=== PATIENT | female | born 1975 | race Caucasian/White ===

== ENCOUNTER 2020-01-19 22:10 | Emergency (ER) | payer MEDICAID ==
[~2020-01-19] VITALS: Ht 162.6 cm; Wt 106.8 kg
[~2020-01-19 22:10] MED LIST: ALBU6.7H3 IH; BUDE10.2 INH
[2020-01-19] MEDS ORDERED: BACDS PO (22:48)
[2020-01-19 23:19] VITALS: BP 136/78
== END 2020-01-19 23:24 | disposition home or self-care (01) ==
LOC: ER 22:10
DX: K13.0 Diseases of lips (principal); J45.909 Unspecified asthma, uncomplicated; F12.90 Cannabis use, unspecified, uncomplicated; Z72.89 Other problems related to lifestyle; Z88.6 Allergy status to analgesic agent; Z79.899 Other long term (current) drug therapy
CPT/HCPCS: 99283

== ENCOUNTER 2020-04-07 18:05 | Emergency (ER) | payer MEDICAID ==
[~2020-04-07] VITALS: Ht 162.6 cm; Wt 102.8 kg
--- NOTE | 2020-04-07 18:59 | NUR ---
U/S IN BED 15 AND WAS NOTIFIED OF U/S TO BE DONE IN ROOM 9 AFTER
[2020-04-07 19:44] LABS: EOSINOPHILS # (AUTO) 0.8 X10'3 (0-0.9); RED CELL DISTRIBUTION WIDTH 20.5 % (11.5-14.5); WHITE BLOOD COUNT 11.9 X10'3 (4.5-11.0)
[2020-04-07 19:46] LABS: BASOPHILS # (AUTO) 0.2 X10'3 (0-0.2); EOSINOPHILS % (AUTO) 6.9 % (0-6); HEMATOCRIT 24.6 % (35.0-45.0); HEMOGLOBIN 7.2 g/dl (12.0-16.0); LYMPHOCYTES # (AUTO) 3.2 X10'3 (1.1-4.8); MEAN CORPUSCULAR HEMOGLOBIN 15.9 PG (27.0-31.0); MEAN CORPUSCULAR HGB CONC 29.5 g/dL (33.0-36.5); MEAN CORPUSCULAR VOLUME 53.8 FL (78-98); MEAN PLATELET VOLUME 8.1 FL (7.4-10.4); MONOCYTES # (AUTO) 0.7 X10'3 (0-0.9); MONOCYTES % (AUTO) 5.7 % (2-12); NEUTROPHILS # (AUTO) 6.9 X10'3 (1.8-7.7); NEUTROPHILS % (AUTO) 58.4 % (42-75); PLATELET COUNT 819 X10'3 (140-440); RED BLOOD COUNT 4.57 X10'6 (4.20-5.60)
[2020-04-07 19:55] LABS: ALBUMIN 3.3 G/DL (3.4-5.0); ANION GAP 12 (8-16); BLOOD UREA NITROGEN 18 MG/DL (7-18); BUN/CREATININE RATIO 18.8 (6.6-38.0); CALCIUM 8.6 MG/DL (8.5-10.1); CHLORIDE 102 MMOL/L (99-107); CREATININE 0.96 MG/DL (0.40-0.90); GLUCOSE 88 MG/DL (70-104); POTASSIUM 3.4 MMOL/L (3.5-5.1); SODIUM 138 MMOL/L (135-145); eGFR 64 ML/MIN
[2020-04-07 19:59] LABS: URINE HCG NEGATIVE (NEG)
[2020-04-07 20:03] LABS: COLOR,URINE YELLOW (Yellow); GLUCOSE, URINE NEGATIVE (Neg); KETONES,URINE 15 mg/dl (Neg); LEUKOCYTE ESTERASE ,URINE NEGATIVE (Neg); NITRITES, URINE NEGATIVE (Neg); OCCULT BLOOD,URINE NEGATIVE (Neg); PROTEIN,URINE TRACE mg/dl (Neg)
[2020-04-07 20:14] LABS: CLARITY,URINE SLIGHTLY CLOUDY (Clear); UA COLLECTION TYPE CLN CATCH MIDSTREAM
[2020-04-07 20:16] LABS: BACTERIA,URINE FEW /HPF (Neg); MUCUS STRANDS MANY /LPF (Neg); RBC,URINE 0-2 /HPF (0-2); SQUAMOUS EPITHELIAL CELL,UR FEW /LPF (FEW); WBC,URINE 0-4 /HPF (0-4)
[2020-04-07 20:38] LABS: ANISOCYTOSIS 3+; ELLIPTOCYTES FEW; HYPOCHROMASIA 2+; MICROCYTOSIS 3+; PLATELET ESTIMATE INCREASED; POLYCHROMASIA FEW
[2020-04-07 20:49] VITALS: BP 129/89
== END 2020-04-07 20:52 | disposition home or self-care (01) ==
LOC: ER 18:05
DX: D25.9 Leiomyoma of uterus, unspecified (principal); D64.9 Anemia, unspecified; R10.9 Unspecified abdominal pain; J45.909 Unspecified asthma, uncomplicated; F12.90 Cannabis use, unspecified, uncomplicated; Z90.49 Acquired absence of other specified parts of digestive tract; Z90.89 Acquired absence of other organs; Z98.890 Other specified postprocedural states; Z72.89 Other problems related to lifestyle; Z79.82 Long term (current) use of aspirin; Z79.899 Other long term (current) drug therapy
CPT/HCPCS: 36415; 76830; 76856; 80048; 81001; 81025; 85025; 93976; 99284

== ENCOUNTER 2020-07-10 11:17 | Outpatient (CLI) | payer MEDICAID ==
[2020-07-10] MEDS ORDERED: LIDOcaine 2% 5ml jelly ONE (11:34)
[2020-07-10] MEDS ORDERED: LIDOcaine 4% (40 mg/ml) topical solution 50ml ONE (12:05)
== END 2020-07-10 23:59 | disposition home or self-care (01) ==
LOC: WOUND CARE 11:17 → EDSTATUS 11:30 → WOUND CARE 23:59
PROVIDERS: ATTEND Nurse Practitioner
DX: T81.89XD Other complications of procedures, not elsewhere classified, subsequent encounter (principal); L98.492 Non-pressure chronic ulcer of skin of other sites with fat layer exposed; J45.909 Unspecified asthma, uncomplicated; E66.9 Obesity, unspecified; Z85.038 Personal history of other malignant neoplasm of large intestine; Z90.49 Acquired absence of other specified parts of digestive tract; Z87.891 Personal history of nicotine dependence; Z85.048 Personal history of other malignant neoplasm of rectum, rectosigmoid junction, and anus; Z68.34 Body mass index [BMI] 34.0-34.9, adult; Y83.8 Other surgical procedures as the cause of abnormal reaction of the patient, or of later complication, without mention of misadventure at the time of the procedure
CPT/HCPCS: 97597; 97598; 97606

== ENCOUNTER 2020-07-13 11:28 | Outpatient (CLI) | payer MEDICAID ==
[2020-07-13] MEDS ORDERED: LIDOcaine 2% 5ml jelly ONE ×2 (12:03)
[2020-07-13] MEDS ORDERED: LIDOcaine 4% (40 mg/ml) topical solution 50ml ONE (12:23)
[2020-07-13 13:39] LABS: BASOPHILS # (AUTO) 0.1 X10'3 (0-0.2); BASOPHILS % (AUTO) 0.7 % (0-1); EOSINOPHILS # (AUTO) 0.8 X10'3 (0-0.9); EOSINOPHILS % (AUTO) 5.8 % (0-6); LYMPHOCYTES # (AUTO) 2.2 X10'3 (1.1-4.8); LYMPHOCYTES % (AUTO) 16.2 % (21-51); MEAN CORPUSCULAR HEMOGLOBIN 20.6 PG (27.0-31.0); MEAN CORPUSCULAR HGB CONC 30.8 g/dL (33.0-36.5); MEAN CORPUSCULAR VOLUME 66.9 FL (78-98); MEAN PLATELET VOLUME 5.6 FL (7.4-10.4); MONOCYTES % (AUTO) 7.4 % (2-12); NEUTROPHILS # (AUTO) 9.6 X10'3 (1.8-7.7); NEUTROPHILS % (AUTO) 69.9 % (42-75); PRE OP HEMATOCRIT 24.2 % (35.0-45.0); RED BLOOD COUNT 3.62 X10'6 (4.20-5.60); RED CELL DISTRIBUTION WIDTH 30.8 % (11.5-14.5)
[2020-07-13 13:47] LABS: PRE OP HEMOGLOBIN 7.4 g/dL (12.0-16.0); PRE OP PLATELET COUNT 1028 X10'3 (140-440)
[2020-07-13 14:09] LABS: ALBUMIN 1.9 G/DL (3.4-5.0); ALBUMIN/GLOBULIN RATIO 0.4 (1.1-1.5); ALKALINE PHOSPHATASE 71 IU/L (46-116); BLOOD UREA NITROGEN 16 MG/DL (7-18); BUN/CREATININE RATIO 22.2 (6.6-38.0); CALCIUM 8.4 MG/DL (8.5-10.1); CHLORIDE 103 MMOL/L (99-107); CREATININE 0.72 MG/DL (0.40-0.90); PLATELET ESTIMATE INCREASED; PRE OP ALT 26 U/L (30-65); PRE OP ANION GAP 9 (8-16); PRE OP AST 17 U/L (10-37); PRE OP BILIRUB, TOTAL 0.2 MG/DL (0.0-1.0); PRE OP GLUCOSE 88 MG/DL (70-104); PRE OP POTASSIUM 3.6 MMOL/L (3.4-5.1); PRE OP SODIUM 138 MMOL/L (135-145); TOTAL CARBON DIOXIDE 26.3 MMOL/L (24-32); TOTAL PROTEIN 6.5 G/DL (6.4-8.2); eGFR 89 ML/MIN
[2020-07-13 14:13] LABS: ANISOCYTOSIS 3+; MICROCYTOSIS 2+
[2020-07-13 14:14] LABS: HYPOCHROMASIA 2+; SCHISTOCYTES FEW; STOMATOCYTES FEW
[2020-07-13 14:15] LABS: ELLIPTOCYTES FEW
== END 2020-07-13 23:59 | disposition home or self-care (01) ==
LOC: WOUND CARE 11:28 → EDSTATUS 11:30 → WOUND CARE 23:59
PROVIDERS: ATTEND Nurse Practitioner
DX: T81.89XD Other complications of procedures, not elsewhere classified, subsequent encounter (principal); L98.492 Non-pressure chronic ulcer of skin of other sites with fat layer exposed; J45.909 Unspecified asthma, uncomplicated; D64.9 Anemia, unspecified; D25.9 Leiomyoma of uterus, unspecified; R06.02 Shortness of breath; N92.0 Excessive and frequent menstruation with regular cycle; Z85.038 Personal history of other malignant neoplasm of large intestine; Z90.49 Acquired absence of other specified parts of digestive tract; Z85.048 Personal history of other malignant neoplasm of rectum, rectosigmoid junction, and anus; Y83.8 Other surgical procedures as the cause of abnormal reaction of the patient, or of later complication, without mention of misadventure at the time of the procedure
CPT/HCPCS: 36415; 80053; 85008; 85025; 87070; 87075; 87077; 87186; 87635; 93005; 97597

== ENCOUNTER 2020-07-17 12:55 | Outpatient (CLI) | payer MEDICAID ==
[2020-07-17] MEDS ORDERED: LIDOcaine 2% 5ml jelly ONE (13:26)
== END 2020-07-17 23:59 | disposition home or self-care (01) ==
LOC: WOUND CARE 12:55 → EDSTATUS 13:00 → WOUND CARE 23:59
PROVIDERS: ATTEND Nurse Practitioner Family
DX: T81.89XD Other complications of procedures, not elsewhere classified, subsequent encounter (principal); L98.492 Non-pressure chronic ulcer of skin of other sites with fat layer exposed; S31.109D Unspecified open wound of abdominal wall, unspecified quadrant without penetration into peritoneal cavity, subsequent encounter; J45.909 Unspecified asthma, uncomplicated; D64.9 Anemia, unspecified; D25.9 Leiomyoma of uterus, unspecified; N92.0 Excessive and frequent menstruation with regular cycle; Z85.038 Personal history of other malignant neoplasm of large intestine; Z90.49 Acquired absence of other specified parts of digestive tract; Z85.048 Personal history of other malignant neoplasm of rectum, rectosigmoid junction, and anus; Y83.8 Other surgical procedures as the cause of abnormal reaction of the patient, or of later complication, without mention of misadventure at the time of the procedure; X58.XXXD Exposure to other specified factors, subsequent encounter
CPT/HCPCS: 97597; 97598

== ENCOUNTER 2020-07-19 07:56 | Inpatient (IN) | payer MEDICAID ==
[~2020-07-19] VITALS: Ht 162.6 cm; Wt 88.7 kg
[2020-07-19] VITALS (17 sets, daily range): BP systolic 110–129; BP diastolic 64–86
[~2020-07-19 07:56] MED LIST changes: +ceFAZolin 2gm in dextrose, iso 50 ML IV ONE; +famotidine 20mg tablet PO ONE; +ringers solution, lacted 1,000 ML IV SCH
[2020-07-19] MEDS ORDERED: diatrizoate meglumine 300mg/ml (30%) 300ml UR ONE (08:00)
[2020-07-19 09:30] LABS: BASOPHILS # (AUTO) 0.1 X10'3 (0-0.2); BASOPHILS % (AUTO) 1.1 % (0-1); MEAN PLATELET VOLUME 5.8 FL (7.4-10.4); RED BLOOD COUNT 4.19 X10'6 (4.20-5.60)
[2020-07-19 09:31] LABS: EOSINOPHILS # (AUTO) 0.8 X10'3 (0-0.9); HEMATOCRIT 28.2 % (35.0-45.0); HEMOGLOBIN 8.6 g/dl (12.0-16.0); LYMPHOCYTES # (AUTO) 2.2 X10'3 (1.1-4.8); LYMPHOCYTES % (AUTO) 17.3 % (21-51); MEAN CORPUSCULAR HEMOGLOBIN 20.6 PG (27.0-31.0); MEAN CORPUSCULAR HGB CONC 30.6 g/dL (33.0-36.5); MEAN CORPUSCULAR VOLUME 67.3 FL (78-98); MONOCYTES # (AUTO) 0.9 X10'3 (0-0.9); MONOCYTES % (AUTO) 6.8 % (2-12); NEUTROPHILS # (AUTO) 8.7 X10'3 (1.8-7.7); NEUTROPHILS % (AUTO) 68.8 % (42-75); RED CELL DISTRIBUTION WIDTH 29.5 % (11.5-14.5); WHITE BLOOD COUNT 12.7 X10'3 (4.5-11.0)
[2020-07-19 09:34] LABS: PLATELET COUNT 1250 X10'3 (140-440)
[2020-07-19 10:37] LABS: PLATELET ESTIMATE INCREASED
[2020-07-19 10:39] LABS: ANISOCYTOSIS 3+; HYPOCHROMASIA 1+; MICROCYTOSIS 2+
[2020-07-19] MEDS ORDERED: sevoflurane 250ml liquid IH ONE (11:04)
[2020-07-19] MEDS ORDERED: fentaNYL/PF 50MCG/1 ML 2ML syringe ONE (11:14)
[2020-07-19] MEDS ORDERED: midazolam 2 mg/2 ml injection ONE (11:14)
[2020-07-19] MEDS ORDERED: LIDOcaine 2% (20mg/ml) 5ml vial ONE (11:24)
[2020-07-19] MEDS ORDERED: propofol inj 20 ML IV ONE (11:24)
[2020-07-19] MEDS ORDERED: ondansetron/PF 4mg/2ml inj IV PRN (11:25)
[2020-07-19] MEDS ORDERED: morphine 4 MG/ML inj SYRINge IV PRN (11:25)
[2020-07-19] MEDS ORDERED: morphine 2 MG/ML inj. syringe IV PRN (11:25)
[2020-07-19] MEDS ORDERED: proCHLORperazine 10 MG/2 ml inj IV PRN (11:25)
[2020-07-19] MEDS ORDERED: meperidine/PF 25mg/ml syringe IV PRN ×3 (11:25)
[2020-07-19] MEDS ORDERED: acetaminophen 1,000mg/100ml IV 100 ML IV PRN (11:25)
[2020-07-19] MEDS ORDERED: ringers solution, lacted 1,000 ML IV SCH (11:25)
[2020-07-19] MEDS ORDERED: ondansetron/PF 4mg/2ml inj ONE (11:33)
[2020-07-19] MEDS ORDERED: dexamethasone sod phosphate 4mg/ml inj. ONE (11:33)
[2020-07-19] MEDS ORDERED: morphine 10mg/ml inj. ONE (12:11)
--- NOTE | 2020-07-19 12:20 | NUR ---
Received from OR via BED , accompanied by Anesthesiologist DR GALO and report given by Anesthesiolgist. PATIENT WAKING UP, DENIES PAIN, V/S WNL, NEUROVASCULAR CHECKS INTACT, 20G PIV LUE, SCD ON, WV AT 125 CONTINOUS SUCTION TO ABDOMEN WITH NO LEAKS DETECTED CDI. F/C DRAINAING CLEAR YELLOW URINE
--- NOTE | 2020-07-19 13:20 | NUR ---
PATIENT A&OX4,, DENIES PAIN, V/S WNL, NEUROVASCULAR CHECKS INTACT, 20G PIV LUE, SCD ON, WV AT 125 CONTINOUS SUCTION TO ABDOMEN WITH NO LEAKS DETECTED CDI. F/C DRAINAING CLEAR YELLOW URINE, TAKEN TO 348A WITH ALL BELONGINGS AND HOOKED UP TO MONITORS IN ROOM AND REPORT GIVEN TO RN WHO HAS TAKEN OVER PATIENT CARE.
[2020-07-19] MEDS: albuterol 2.5 MG/3 ML nebule NEB PRN ×2 (15:50→19:55)
[2020-07-19] MEDS: HYDROcodone/acetaminophen 10/325mg tab PO PRN ×2 (16:54→21:50)
--- NOTE | 2020-07-19 18:30 | NUR ---
Patient in room [facility] 348. I have received report from SHILA GONZALES and had the opportunity to ask questions and assume patient care.
[2020-07-19] MEDS: budesonide 0.5mg/2ml UD nebule IH SCH (19:55)
[2020-07-20] VITALS: BP 107/62
[2020-07-20] MEDS: HYDROcodone/acetaminophen 10/325mg tab PO PRN ×4 (01:51→16:02)
[2020-07-20 04:00] VITALS: BP 128/70
--- NOTE | 2020-07-20 06:30 | NUR ---
Problems reprioritized. Patient report given, questions answered & plan of care reviewed with SHILA GONZALES.
--- NOTE | 2020-07-20 06:47 | NUR ---
Patient in room [facility] 348. I have received report from Cyndi Hanna RN and had the opportunity to ask questions and assume patient care.
[2020-07-20] MEDS: albuterol 2.5 MG/3 ML nebule NEB PRN ×2 (07:47→22:52)
[2020-07-20] MEDS: budesonide 0.5mg/2ml UD nebule IH SCH ×2 (07:47→20:00)
[2020-07-20 08:00] VITALS: BP 118/66
[2020-07-20] MEDS ORDERED: HYDROmorphone inj. 0.5 MG/0.5 ML DISP.SYRIN IM PRN (08:15)
[2020-07-20] MEDS ORDERED: LIDOcaine 4% (40 mg/ml) topical solution 50ml TP PRN (08:15)
[2020-07-20] MEDS ORDERED: ondansetron/PF 4mg/2ml inj IV PRN (10:05)
[2020-07-20 12:00] VITALS: BP 124/72
[2020-07-20] MEDS: Dakins solution (1/4 strength) 473ml solution TP SCH (13:42)
[2020-07-20] MEDS: HYDROmorphone inj. 0.5 MG/0.5 ML DISP.SYRIN IV PRN ×2 (13:42→21:32)
[2020-07-20] MEDS ORDERED: ceFAZolin 2gm in dextrose, iso 100 ML IV SCH (16:00)
--- NOTE | 2020-07-20 18:35 | NUR ---
Problems reprioritized. Patient report given, questions answered & plan of care reviewed with Cyndi Hanna RN.
[2020-07-20] MEDS ORDERED: docusate sod 100mg capsule PO ONE (18:40)
--- NOTE | 2020-07-20 18:43 | NUR ---
Wound care specific instructions given to [facility] nurse Cyndi Hanna Rn as well as a print out of the instructions per Wound care nurse. (Mayela). Detailed of BID wound dressing change discussed.
--- NOTE | 2020-07-20 18:45 | NUR ---
Patient in room [facility] 348. I have received report from SHILA GONZALES and had the opportunity to ask questions and assume patient care.
[2020-07-20 20:00] VITALS: BP 111/75
[2020-07-20] MEDS: Melatonin 3mg tablet PO SCH (21:31)
[2020-07-21] VITALS: BP 112/70
[2020-07-21] MEDS: ceFAZolin 2gm in dextrose, iso 50 ML IV SCH ×3 (00:15→17:12)
[2020-07-21] MEDS: HYDROcodone/acetaminophen 10/325mg tab PO PRN ×4 (01:09→20:45)
--- NOTE | 2020-07-21 06:32 | NUR ---
Problems reprioritized. Patient report given, questions answered & plan of care reviewed with FAUZIA GONZALES.
--- NOTE | 2020-07-21 07:42 | NUR ---
Called Anival ruiz to notify of MRSA in abdominal wound. Voicemail full. Will attempt to call at a later time.
[2020-07-21 07:43] VITALS: BP 125/73
[2020-07-21] MEDS: albuterol 2.5 MG/3 ML nebule NEB PRN (07:58)
[2020-07-21] MEDS: budesonide 0.5mg/2ml UD nebule IH SCH ×2 (07:58→19:47)
--- NOTE | 2020-07-21 08:22 | NUR ---
sPOKE WITH md ON PHONE. HE IS AWARE OF MRSA IN ABDOMINAL WOUND. ORDERED [facility] TO DOSE. MADE AWARE OF PREVIOUS LABS AND THERE ARE NO LABS NOW. REQUESTED LACTIC, BCS, LABS. MD DOES NOT WISH TO ORDER AT THIS TIME.
[2020-07-21] MEDS: HYDROmorphone inj. 0.5 MG/0.5 ML DISP.SYRIN IV PRN ×3 (08:39→23:05)
[2020-07-21] MEDS ORDERED: DOCU100C40 PO (08:49)
[2020-07-21] MEDS ORDERED: DIPH25TA62 PO (08:49)
[2020-07-21] MEDS ORDERED: OXYC-150 PO (08:49)
[2020-07-21] MEDS ORDERED: CEFP100T7 PO (08:50)
[2020-07-21] MEDS ORDERED: vancomycin/NS 1 GM ADD-VANTAGE 250 ML X 1 DOSE IV ONE (08:55)
[2020-07-21 09:42] LABS: CREATININE 0.68 MG/DL (0.40-0.90); eGFR > 90 ML/MIN
[2020-07-21] MEDS: vancomycin/NS 1 GM ADD-VANTAGE 250 ML IV SCH ×2 (10:50→22:17)
[2020-07-21 12:03] VITALS: BP 114/62
[2020-07-21] MEDS: Dakins solution (1/4 strength) 473ml solution TP SCH ×2 (17:11→20:00)
--- NOTE | 2020-07-21 18:31 | NUR ---
Gave report to Amy GONZALES.
--- NOTE | 2020-07-21 18:35 | NUR ---
Patient in room [facility] 348. I have received report from FAUZIA GONZALES and had the opportunity to ask questions and assume patient care.
[2020-07-21 20:00] VITALS: BP 117/68
[2020-07-21] MEDS: lactobacillus rhamnosus 10,000 MMU CELLS/CAPSULE PO SCH (20:41)
[2020-07-21] MEDS: Melatonin 3mg tablet PO SCH (20:41)
[2020-07-22] VITALS: BP 120/72
[2020-07-22] MEDS: ceFAZolin 2gm in dextrose, iso 50 ML IV SCH ×4 (00:31→23:57)
[2020-07-22] MEDS: HYDROcodone/acetaminophen 10/325mg tab PO PRN ×4 (03:21→21:45)
--- NOTE | 2020-07-22 06:30 | NUR ---
Problems reprioritized. Patient report given, questions answered & plan of care reviewed with BLAS GONZALES.
--- NOTE | 2020-07-22 06:46 | NUR ---
Patient in room [facility] 348. I have received report from CHRISTIAN Reyes and had the opportunity to ask questions and assume patient care.
[2020-07-22] MEDS: lactobacillus rhamnosus 10,000 MMU CELLS/CAPSULE PO SCH ×2 (07:12→21:09)
[2020-07-22] MEDS: HYDROmorphone inj. 0.5 MG/0.5 ML DISP.SYRIN IV PRN ×3 (07:13→23:50)
[2020-07-22 08:00] VITALS: BP 127/74
[2020-07-22 08:12] LABS: HEMOGLOBIN 7.3 g/dl (12.0-16.0); MEAN CORPUSCULAR VOLUME 66.1 FL (78-98); MEAN PLATELET VOLUME 5.6 FL (7.4-10.4); NEUTROPHILS # (AUTO) 6.9 X10'3 (1.8-7.7)
[2020-07-22 08:14] LABS: BASOPHILS % (AUTO) 0.5 % (0-1); EOSINOPHILS # (AUTO) 0.8 X10'3 (0-0.9); EOSINOPHILS % (AUTO) 8.3 % (0-6); HEMATOCRIT 23.4 % (35.0-45.0); LYMPHOCYTES # (AUTO) 1.5 X10'3 (1.1-4.8); LYMPHOCYTES % (AUTO) 14.7 % (21-51); MEAN CORPUSCULAR HEMOGLOBIN 20.6 PG (27.0-31.0); MEAN CORPUSCULAR HGB CONC 31.1 g/dL (33.0-36.5); MONOCYTES # (AUTO) 0.7 X10'3 (0-0.9); MONOCYTES % (AUTO) 7.1 % (2-12); NEUTROPHILS % (AUTO) 69.4 % (42-75); PLATELET COUNT 981 X10'3 (140-440); RED BLOOD COUNT 3.53 X10'6 (4.20-5.60); RED CELL DISTRIBUTION WIDTH 28.6 % (11.5-14.5)
[2020-07-22 08:23] LABS: ALANINE AMINOTRANSFERASE 40 U/L (12-78); ALBUMIN 1.9 G/DL (3.4-5.0); ALBUMIN/GLOBULIN RATIO 0.4 (1.1-1.5); ALKALINE PHOSPHATASE 80 IU/L (46-116); ANION GAP 6 (8-16); ASPARTATE AMINO TRANSFERASE 34 U/L (10-37); BILIRUBIN,TOTAL 0.4 MG/DL (0.1-1.0); BLOOD UREA NITROGEN 11 MG/DL (7-18); BUN/CREATININE RATIO 17.7 (6.6-38.0); CALCIUM 8.5 MG/DL (8.5-10.1); CHLORIDE 104 MMOL/L (99-107); CREATININE 0.62 MG/DL (0.40-0.90); GLUCOSE 101 MG/DL (70-104); POTASSIUM 3.3 MMOL/L (3.5-5.1); SODIUM 139 MMOL/L (135-145); TOTAL CARBON DIOXIDE 29.1 MMOL/L (24-32); TOTAL PROTEIN 6.8 G/DL (6.4-8.2); eGFR > 90 ML/MIN
[2020-07-22 08:44] LABS: ANISOCYTOSIS 3+; HYPOCHROMASIA 1+; MICROCYTOSIS 2+; PLATELET ESTIMATE INCREASED
[2020-07-22] MEDS: budesonide 0.5mg/2ml UD nebule IH SCH ×2 (08:47→19:54)
[2020-07-22] MEDS: albuterol 2.5 MG/3 ML nebule NEB PRN ×2 (08:47→19:54)
[2020-07-22] MEDS: vancomycin/NS 1 GM ADD-VANTAGE 250 ML IV SCH ×2 (10:20→21:45)
--- NOTE | 2020-07-22 10:34 | NUR ---
Pt requesting that we wait to change her dressing until the next dose of dilauded is available.
[2020-07-22 11:00] VITALS: BP 119/71
[2020-07-22] MEDS: Dakins solution (1/4 strength) 473ml solution TP SCH (15:00)
--- NOTE | 2020-07-22 15:20 | NUR ---
Dressing to midline ABD changed per written orders. Pt tolerated well. Will continue to monitor.
--- NOTE | 2020-07-22 18:48 | NUR ---
Problems reprioritized. Patient report given, questions answered & plan of care reviewed with CHRISTIAN Grier.
[2020-07-22 20:00] VITALS: BP 125/71
[2020-07-22] MEDS: Melatonin 3mg tablet PO SCH (21:09)
[2020-07-22] MEDS ORDERED: potassium Cl 20 mEq SR tablet PO STA (21:11)
[2020-07-22] MEDS ORDERED: VANCOMYCIN LEVEL IV ONE (21:30)
[2020-07-23] VITALS: BP 109/69
[2020-07-23] MEDS: Dakins solution (1/4 strength) 473ml solution TP SCH ×3 (01:00→23:01)
[2020-07-23] MEDS: HYDROcodone/acetaminophen 10/325mg tab PO PRN ×2 (02:42→18:58)
--- NOTE | 2020-07-23 04:51 | NUR ---
Student Medication Administration: For this medication-pass time frame, all medication were reviewed, dispensed, administered and documented per hospital policy by Florence MARTINI . Student documentation: I have reviewed and agree with all interventions, assessments performed and documented by Florence MARTINI.
[2020-07-23 05:57] LABS: BASOPHILS # (AUTO) 0.1 X10'3 (0-0.2); BASOPHILS % (AUTO) 0.8 % (0-1); HEMOGLOBIN 7.3 g/dl (12.0-16.0); LYMPHOCYTES % (AUTO) 16.4 % (21-51); MEAN PLATELET VOLUME 5.8 FL (7.4-10.4); MONOCYTES # (AUTO) 0.8 X10'3 (0-0.9)
[2020-07-23 05:58] LABS: EOSINOPHILS # (AUTO) 0.7 X10'3 (0-0.9); EOSINOPHILS % (AUTO) 9.2 % (0-6); HEMATOCRIT 23.6 % (35.0-45.0); LYMPHOCYTES # (AUTO) 1.3 X10'3 (1.1-4.8); MEAN CORPUSCULAR HEMOGLOBIN 20.5 PG (27.0-31.0); MEAN CORPUSCULAR HGB CONC 31.1 g/dL (33.0-36.5); MONOCYTES % (AUTO) 9.7 % (2-12); NEUTROPHILS # (AUTO) 5.2 X10'3 (1.8-7.7); NEUTROPHILS % (AUTO) 63.9 % (42-75); PLATELET COUNT 959 X10'3 (140-440); RED BLOOD COUNT 3.57 X10'6 (4.20-5.60); RED CELL DISTRIBUTION WIDTH 28.5 % (11.5-14.5); WHITE BLOOD COUNT 8.1 X10'3 (4.5-11.0)
--- NOTE | 2020-07-23 06:15 | NUR ---
Patient in room [facility] 348. I have received report from CHRISTIAN Grier and had the opportunity to ask questions and assume patient care.
--- NOTE | 2020-07-23 06:27 | NUR ---
Problems reprioritized. Patient report given, questions answered & plan of care reviewed with DAREK GONZALES.
[2020-07-23 06:58] LABS: PLATELET ESTIMATE INCREASED
[2020-07-23 06:59] LABS: ANISOCYTOSIS 3+; ELLIPTOCYTES FEW; HYPOCHROMASIA 2+; MICROCYTOSIS 2+; POLYCHROMASIA 1+; SCHISTOCYTES FEW
[2020-07-23 07:00] VITALS: BP 123/73
[2020-07-23] MEDS: budesonide 0.5mg/2ml UD nebule IH SCH ×2 (07:37→20:30)
[2020-07-23] MEDS: ceFAZolin 2gm in dextrose, iso 50 ML IV SCH ×3 (08:13→23:18)
[2020-07-23] MEDS: lactobacillus rhamnosus 10,000 MMU CELLS/CAPSULE PO SCH ×2 (08:16→20:19)
[2020-07-23] MEDS: HYDROmorphone inj. 0.5 MG/0.5 ML DISP.SYRIN IV PRN ×3 (08:23→22:58)
[2020-07-23] MEDS: VANCOmycin 1250MG/NS 250ml Bag 250 ML IV SCH ×2 (08:50→16:58)
[2020-07-23 11:00] VITALS: BP 122/77
--- NOTE | 2020-07-23 18:05 | NUR ---
Problems reprioritized. Patient report given, questions answered & plan of care reviewed with CHRISTIAN Turner.
--- NOTE | 2020-07-23 18:30 | NUR ---
Patient in room [facility] 348. I have received report from DAREK and had the opportunity to ask questions and assume patient care.
[2020-07-23 19:00] VITALS: BP 120/76
[2020-07-23] MEDS: Melatonin 3mg tablet PO SCH (20:19)
[2020-07-23] MEDS: enoxaparin 40mg/0.4ml syringe SUBCUT SCH (20:21)
[2020-07-23] MEDS: albuterol 2.5 MG/3 ML nebule NEB PRN (20:30)
[2020-07-23 22:00] VITALS: BP 110/66
[2020-07-24] MEDS: VANCOmycin 1250MG/NS 250ml Bag 250 ML IV SCH ×2 (01:10→08:00)
[2020-07-24] MEDS: HYDROcodone/acetaminophen 10/325mg tab PO PRN ×4 (03:26→23:41)
--- NOTE | 2020-07-24 06:05 | NUR ---
Patient in room [facility] 348. I have received report from CHRISTIAN Turner and had the opportunity to ask questions and assume patient care.
--- NOTE | 2020-07-24 06:28 | NUR ---
Problems reprioritized. Patient report given, questions answered & plan of care reviewed with DAREK.
[2020-07-24] MEDS ORDERED: VANCOMYCIN LEVEL IV ONE (07:30)
[2020-07-24] MEDS: budesonide 0.5mg/2ml UD nebule IH SCH ×2 (07:39→20:39)
[2020-07-24] MEDS: ceFAZolin 2gm in dextrose, iso 50 ML IV SCH ×3 (07:52→23:40)
[2020-07-24] MEDS: lactobacillus rhamnosus 10,000 MMU CELLS/CAPSULE PO SCH ×2 (07:54→19:34)
[2020-07-24] MEDS: Dakins solution (1/4 strength) 473ml solution TP SCH ×2 (07:59→20:00)
[2020-07-24 08:00] VITALS: BP 122/75
[2020-07-24 08:06] LABS: EOSINOPHILS # (AUTO) 0.4 X10'3 (0-0.9); LYMPHOCYTES # (AUTO) 1.6 X10'3 (1.1-4.8); MEAN PLATELET VOLUME 5.7 FL (7.4-10.4); MONOCYTES # (AUTO) 0.7 X10'3 (0-0.9)
[2020-07-24 08:07] LABS: BASOPHILS % (AUTO) 0.7 % (0-1); EOSINOPHILS % (AUTO) 6.2 % (0-6); HEMATOCRIT 26.1 % (35.0-45.0); HEMOGLOBIN 8.3 g/dl (12.0-16.0); LYMPHOCYTES % (AUTO) 23.8 % (21-51); MEAN CORPUSCULAR HEMOGLOBIN 21.1 PG (27.0-31.0); MEAN CORPUSCULAR HGB CONC 31.6 g/dL (33.0-36.5); MEAN CORPUSCULAR VOLUME 66.6 FL (78-98); MONOCYTES % (AUTO) 10.5 % (2-12); NEUTROPHILS # (AUTO) 3.9 X10'3 (1.8-7.7); NEUTROPHILS % (AUTO) 58.8 % (42-75); RED BLOOD COUNT 3.92 X10'6 (4.20-5.60); RED CELL DISTRIBUTION WIDTH 27.5 % (11.5-14.5); WHITE BLOOD COUNT 6.6 X10'3 (4.5-11.0)
[2020-07-24 08:12] LABS: PLATELET COUNT 1078 X10'3 (140-440)
[2020-07-24 08:30] LABS: VANCOMYCIN,TROUGH 22.4 UG/ML (6.0-14.0)
[2020-07-24 08:45] LABS: TOTAL CELLS COUNTED 100
[2020-07-24 08:46] LABS: ANISOCYTOSIS 3+; MICROCYTOSIS 2+; PLATELET ESTIMATE INCREASED
[2020-07-24 08:47] LABS: ELLIPTOCYTES FEW; HYPOCHROMASIA 2+; POLYCHROMASIA 1+
[2020-07-24 08:48] LABS: SCHISTOCYTES FEW
[2020-07-24 09:15] LABS: ALANINE AMINOTRANSFERASE 60 U/L (12-78); ALBUMIN 2.1 G/DL (3.4-5.0); ALBUMIN/GLOBULIN RATIO 0.4 (1.1-1.5); ALKALINE PHOSPHATASE 83 IU/L (46-116); ANION GAP 10 (8-16); ASPARTATE AMINO TRANSFERASE 51 U/L (10-37); BILIRUBIN,TOTAL 0.2 MG/DL (0.1-1.0); BLOOD UREA NITROGEN 9 MG/DL (7-18); BUN/CREATININE RATIO 14.1 (6.6-38.0); CHLORIDE 103 MMOL/L (99-107); CREATININE 0.64 MG/DL (0.40-0.90); GLUCOSE 88 MG/DL (70-104); POTASSIUM 3.4 MMOL/L (3.5-5.1); SODIUM 139 MMOL/L (135-145); TOTAL CARBON DIOXIDE 25.9 MMOL/L (24-32); TOTAL PROTEIN 7.3 G/DL (6.4-8.2); eGFR > 90 ML/MIN
[2020-07-24 11:00] VITALS: BP 115/77
[2020-07-24] MEDS: vancomycin/NS 1 GM ADD-VANTAGE 250 ML X 1 DOSE IV SCH ×2 (14:49→21:38)
[2020-07-24] MEDS: HYDROmorphone inj. 0.5 MG/0.5 ML DISP.SYRIN IV PRN (14:50)
--- NOTE | 2020-07-24 15:51 | NUR ---
Initial: Pt s/p drainage of subfascial abscess and perifascial abscess as there was pockets of pus in suprapubic area with MRSA detected in abdomen, per MD progress note. Pt has a full thickness surgical wound on anterior medial abdomen per WOC note. Pt PO intake overall is average 50-75% on regular diet, however recent PO intake in the last three days has decreased to 25-50% intake, pt not meeting nutrient needs. Recommend ONS huseyin shakes BIDLD and ensure enlive daily at breakfast, MD notified. Last BM large 07/23. Will continue to monitor for nutrient needs. Recs: 1) Continue regular diet 2) Huseyin shake BIDLD and ensure enlive at breakfast 3) Routine bowel care 4) Scaled wt per Rx Addendum: 07/24/20 at [address] Amended: Links added. Addendum: 07/24/20 at [address] MARLA Caceresves
--- NOTE | 2020-07-24 18:15 | NUR ---
Patient in room [facility] 348. I have received report from CHRISTIAN arora and had the opportunity to ask questions and assume patient care.
--- NOTE | 2020-07-24 18:17 | NUR ---
Problems reprioritized. Patient report given, questions answered & plan of care reviewed with Fide Ayala RN.
[2020-07-24] MEDS: enoxaparin 40mg/0.4ml syringe SUBCUT SCH (19:34)
[2020-07-24 20:00] VITALS: BP 127/79
--- NOTE | 2020-07-24 20:19 | NUR ---
Dressing changed at 1500; will changed dressing later in shift per patient request.
[2020-07-24] MEDS: albuterol 2.5 MG/3 ML nebule NEB PRN (20:39)
[2020-07-24] MEDS: Melatonin 3mg tablet PO SCH (21:38)
[2020-07-24 23:49] VITALS: BP 124/68
[2020-07-25] MEDS: HYDROmorphone inj. 0.5 MG/0.5 ML DISP.SYRIN IV PRN ×2 (03:27→20:34)
[2020-07-25] MEDS: Dakins solution (1/4 strength) 473ml solution TP SCH ×2 (04:04→20:36)
--- NOTE | 2020-07-25 04:04 | NUR ---
Dressing changed; patient tolerated well.
[2020-07-25 05:20] LABS: HEMOGLOBIN 7.6 g/dl (12.0-16.0); MONOCYTES % (AUTO) 10.6 % (2-12); NEUTROPHILS # (AUTO) 3.4 X10'3 (1.8-7.7)
[2020-07-25] MEDS: vancomycin/NS 1 GM ADD-VANTAGE 250 ML X 1 DOSE IV SCH (05:21)
[2020-07-25 05:22] LABS: BASOPHILS % (AUTO) 0.6 % (0-1); EOSINOPHILS # (AUTO) 0.3 X10'3 (0-0.9); EOSINOPHILS % (AUTO) 5.6 % (0-6); HEMATOCRIT 24.9 % (35.0-45.0); LYMPHOCYTES # (AUTO) 1.7 X10'3 (1.1-4.8); LYMPHOCYTES % (AUTO) 27.3 % (21-51); MEAN CORPUSCULAR HEMOGLOBIN 20.5 PG (27.0-31.0); MEAN CORPUSCULAR HGB CONC 30.7 g/dL (33.0-36.5); MEAN CORPUSCULAR VOLUME 66.8 FL (78-98); MEAN PLATELET VOLUME 5.7 FL (7.4-10.4); MONOCYTES # (AUTO) 0.6 X10'3 (0-0.9); NEUTROPHILS % (AUTO) 55.9 % (42-75); PLATELET COUNT 990 X10'3 (140-440); RED BLOOD COUNT 3.72 X10'6 (4.20-5.60); WHITE BLOOD COUNT 6.2 X10'3 (4.5-11.0)
[2020-07-25 05:33] LABS: ALANINE AMINOTRANSFERASE 51 U/L (12-78); ALBUMIN 2.1 G/DL (3.4-5.0); ALBUMIN/GLOBULIN RATIO 0.4 (1.1-1.5); ALKALINE PHOSPHATASE 75 IU/L (46-116); ANION GAP 9 (8-16); ASPARTATE AMINO TRANSFERASE 42 U/L (10-37); BILIRUBIN,TOTAL 0.1 MG/DL (0.1-1.0); BLOOD UREA NITROGEN 14 MG/DL (7-18); BUN/CREATININE RATIO 23.7 (6.6-38.0); CALCIUM 8.7 MG/DL (8.5-10.1); CHLORIDE 105 MMOL/L (99-107); CREATININE 0.59 MG/DL (0.40-0.90); GLUCOSE 90 MG/DL (70-104); POTASSIUM 3.3 MMOL/L (3.5-5.1); SODIUM 141 MMOL/L (135-145); TOTAL CARBON DIOXIDE 26.8 MMOL/L (24-32); eGFR > 90 ML/MIN
--- NOTE | 2020-07-25 05:35 | NUR ---
FC DC'd per order
--- NOTE | 2020-07-25 06:28 | NUR ---
Problems reprioritized. Patient report given, questions answered & plan of care reviewed with CHRISTIAN Ballard.
[2020-07-25] MEDS: HYDROcodone/acetaminophen 10/325mg tab PO PRN ×3 (06:32→16:53)
[2020-07-25 07:12] LABS: ANISOCYTOSIS 3+; MICROCYTOSIS 2+; PLATELET ESTIMATE INCREASED
[2020-07-25 07:13] LABS: ELLIPTOCYTES FEW; GIANT PLATELET FEW; HYPOCHROMASIA 1+; LARGE PLATELETS FEW; SCHISTOCYTES FEW
[2020-07-25 08:00] VITALS: BP 98/70
[2020-07-25] MEDS: budesonide 0.5mg/2ml UD nebule IH SCH ×2 (08:20→20:00)
[2020-07-25] MEDS: lactobacillus rhamnosus 10,000 MMU CELLS/CAPSULE PO SCH ×2 (08:27→20:30)
[2020-07-25] MEDS: ceFAZolin 2gm in dextrose, iso 50 ML IV SCH ×2 (08:27→16:45)
[2020-07-25 11:00] VITALS: BP 114/70
[2020-07-25] MEDS ORDERED: VANCOMYCIN LEVEL IV ONE (13:30)
[2020-07-25] MEDS ORDERED: VANCOmycin 1250MG/NS 250ml Bag 250 ML IV SCH (15:00)
[2020-07-25 18:00] VITALS: BP 108/69
--- NOTE | 2020-07-25 18:18 | NUR ---
Received report from CHRISTIAN Ballard. Patient is resting comfortably on room air, in no apparent distress. Call light and items of frequent use within reach. Will continue to monitor.
[2020-07-25] MEDS: VANCOmycin 1250MG/NS 250ml Bag 250 ML IV SCH (20:30)
[2020-07-25] MEDS: Melatonin 3mg tablet PO SCH (20:31)
[2020-07-25] MEDS: enoxaparin 40mg/0.4ml syringe SUBCUT SCH (20:31)
[2020-07-26] VITALS: BP 103/68
[2020-07-26] MEDS: ceFAZolin 2gm in dextrose, iso 50 ML IV SCH ×3 (00:31→16:00)
[2020-07-26] MEDS: HYDROcodone/acetaminophen 10/325mg tab PO PRN ×4 (00:32→17:05)
[2020-07-26] MEDS: VANCOmycin 1250MG/NS 250ml Bag 250 ML IV SCH ×2 (04:37→11:50)
[2020-07-26 05:35] LABS: EOSINOPHILS # (AUTO) 0.4 X10'3 (0-0.9); MEAN CORPUSCULAR HEMOGLOBIN 20.4 PG (27.0-31.0)
[2020-07-26 05:38] LABS: BASOPHILS % (AUTO) 0.4 % (0-1); EOSINOPHILS % (AUTO) 5.6 % (0-6); HEMOGLOBIN 7.9 g/dl (12.0-16.0); LYMPHOCYTES # (AUTO) 2.3 X10'3 (1.1-4.8); LYMPHOCYTES % (AUTO) 31.5 % (21-51); MEAN CORPUSCULAR HGB CONC 30.5 g/dL (33.0-36.5); MEAN CORPUSCULAR VOLUME 66.7 FL (78-98); MEAN PLATELET VOLUME 5.8 FL (7.4-10.4); MONOCYTES # (AUTO) 0.7 X10'3 (0-0.9); MONOCYTES % (AUTO) 9.3 % (2-12); NEUTROPHILS % (AUTO) 53.2 % (42-75); PLATELET COUNT 974 X10'3 (140-440); RED BLOOD COUNT 3.91 X10'6 (4.20-5.60); WHITE BLOOD COUNT 7.4 X10'3 (4.5-11.0)
[2020-07-26 05:43] LABS: ALBUMIN 2.2 G/DL (3.4-5.0); ALBUMIN/GLOBULIN RATIO 0.4 (1.1-1.5); ANION GAP 7 (8-16); ASPARTATE AMINO TRANSFERASE 30 U/L (10-37); BILIRUBIN,TOTAL 0.2 MG/DL (0.1-1.0); BLOOD UREA NITROGEN 10 MG/DL (7-18); BUN/CREATININE RATIO 14.9 (6.6-38.0); CALCIUM 8.7 MG/DL (8.5-10.1); CHLORIDE 105 MMOL/L (99-107); CREATININE 0.67 MG/DL (0.40-0.90); GLUCOSE 97 MG/DL (70-104); POTASSIUM 3.4 MMOL/L (3.5-5.1); SODIUM 140 MMOL/L (135-145); TOTAL CARBON DIOXIDE 27.7 MMOL/L (24-32); TOTAL PROTEIN 7.1 G/DL (6.4-8.2); eGFR > 90 ML/MIN
[2020-07-26 05:44] LABS: ALANINE AMINOTRANSFERASE 40 U/L (12-78); ALKALINE PHOSPHATASE 83 IU/L (46-116)
--- NOTE | 2020-07-26 06:24 | NUR ---
Problems reprioritized. Patient report given, questions answered & plan of care reviewed with CHRISTIAN Sandoval.
--- NOTE | 2020-07-26 06:36 | NUR ---
Patient in room [facility] 348. I have received report from CHRISTIAN Petersen and had the opportunity to ask questions and assume patient care.
[2020-07-26 06:51] LABS: ANISOCYTOSIS 3+; HYPOCHROMASIA 1+; MICROCYTOSIS 2+; PLATELET ESTIMATE INCREASED; POLYCHROMASIA FEW
[2020-07-26 06:52] LABS: ELLIPTOCYTES FEW; ROULEAUX 1+; SCHISTOCYTES FEW
[2020-07-26 07:38] VITALS: BP 112/70
[2020-07-26] MEDS: lactobacillus rhamnosus 10,000 MMU CELLS/CAPSULE PO SCH (07:42)
[2020-07-26] MEDS: budesonide 0.5mg/2ml UD nebule IH SCH (08:00)
--- NOTE | 2020-07-26 08:37 | NUR ---
Pt. refused 0800 SVN
--- NOTE | 2020-07-26 08:51 | NUR ---
Patient refusing to have abd wound dressing change at this time. She is wanting to wait for her dc and her friend to be present for wound dressing change education as her friend will be providing wound care for her at home.
--- NOTE | 2020-07-26 09:50 | NUR ---
Dr. Aleman in to see patient.
[2020-07-26] MEDS ORDERED: aspirin 325mg tablet PO SCH (10:55)
[2020-07-26] MEDS ORDERED: ASPI-1264 PO (11:06)
--- NOTE | 2020-07-26 11:07 | NUR ---
Per patient. she is not allergic to aspirin. According to patient, she took aspirin when she was young and gave her bruises, no rashes or hives or any other reaction. Hospital pharmacist notified over the phone
[2020-07-26 12:22] VITALS: BP 115/76
[2020-07-26] MEDS: Dakins solution (1/4 strength) 473ml solution TP SCH (15:36)
[2020-07-26] MEDS ORDERED: SULF1TAB49 PO (15:52)
--- NOTE | 2020-07-26 17:09 | NUR ---
Patient alert and oriented in no apparent distress. Patient friend Sis at bedside. Patient okay to have Sis at bedside for discharge instructions and wound care. Discussed discharge instructions and new prescriptions with patient and Sis. Demonstrated to patient and Sis wound care dressing changes. Both verbalize understanding and stated no questions after education. Extra supplies for wound care sent home with patient. Pain med prescription given to patient, asa and abx escripted to pharmacy. Patient dc'd with all personal belongings escorted in wheelchair. Sis transporting patient home via personal vehicle. Addendum: 07/26/20 at 1837 by Jaime Joe RN Patient instructed to follow up with Dr. Patterson in 2-3 weeks for stent removal.
[2020-07-26] MEDS ORDERED: VANCOMYCIN LEVEL IV ONE (19:30)
== END 2020-07-26 17:10 | disposition home or self-care (01) | DRG 711 ==
LOC: PAS 07:56 → SUR 3N 12:44
PROVIDERS: ADMIT Surgery; ATTEND Surgery
PROC: 0J980ZZ Drainage of Abdomen Subcutaneous Tissue and Fascia, Open Approach (ICD-10-PCS; principal; 2020-07-19 11:04)
PROC: BT101ZZ Fluoroscopy of Bladder using Low Osmolar Contrast (ICD-10-PCS; 2020-07-24)
DX: T81.43XA Infection following a procedure, organ and space surgical site, initial encounter (principal); L02.211 Cutaneous abscess of abdominal wall; Z90.49 Acquired absence of other specified parts of digestive tract; Y83.8 Other surgical procedures as the cause of abnormal reaction of the patient, or of later complication, without mention of misadventure at the time of the procedure; Y92.89 Other specified places as the place of occurrence of the external cause
CPT/HCPCS: 36415; 80053; 80202; 82565; 82948; 85007; 85008; 85025; 86885; 86900; 86901; 87070; 87075; 87076; 87077; 87081; 87102; 87186; 94640; 94760; A4618; A6550; A7000; G0378; J1100; J1170; J1650; J2001; J2250; J2270; J2405; J2704; J3010; J3370; J7120; J7626; Q9958

== ENCOUNTER 2020-08-01 11:24 | Outpatient (CLI) | payer MEDICAID ==
[~2020-08-01 11:24] MED LIST changes: +ASPI-1264 PO; +CEFP100T7 PO; +DIPH25TA62 PO; +DOCU100C40 PO; +OXYC-150 PO; +SULF1TAB49 PO; -ceFAZolin 2gm in dextrose, iso 50 ML IV ONE; -famotidine 20mg tablet PO ONE; -ringers solution, lacted 1,000 ML IV SCH
[2020-08-01] MEDS ORDERED: LIDOcaine 2% 5ml jelly ONE (12:02)
== END 2020-08-01 23:59 | disposition home or self-care (01) ==
LOC: WOUND CARE 11:24
PROVIDERS: ATTEND Nurse Practitioner
DX: T81.89XD Other complications of procedures, not elsewhere classified, subsequent encounter (principal); L98.492 Non-pressure chronic ulcer of skin of other sites with fat layer exposed; S31.109D Unspecified open wound of abdominal wall, unspecified quadrant without penetration into peritoneal cavity, subsequent encounter; J45.909 Unspecified asthma, uncomplicated; E66.9 Obesity, unspecified; D64.9 Anemia, unspecified; D25.9 Leiomyoma of uterus, unspecified; N92.0 Excessive and frequent menstruation with regular cycle; F17.200 Nicotine dependence, unspecified, uncomplicated; Z85.038 Personal history of other malignant neoplasm of large intestine; Z90.49 Acquired absence of other specified parts of digestive tract; Z68.34 Body mass index [BMI] 34.0-34.9, adult; Z85.048 Personal history of other malignant neoplasm of rectum, rectosigmoid junction, and anus; Y83.8 Other surgical procedures as the cause of abnormal reaction of the patient, or of later complication, without mention of misadventure at the time of the procedure; X58.XXXD Exposure to other specified factors, subsequent encounter
CPT/HCPCS: 11043; 11046; 87070; 87075; 87077; 87186

== ENCOUNTER 2020-08-08 11:34 | Outpatient (CLI) | payer MEDICAID ==
[2020-08-08 12:44] LABS: BASOPHILS # (AUTO) 0.1 X10'3 (0-0.2); EOSINOPHILS # (AUTO) 0.5 X10'3 (0-0.9); MONOCYTES # (AUTO) 0.7 X10'3 (0-0.9)
[2020-08-08 12:46] LABS: EOSINOPHILS % (AUTO) 6.1 % (0-6); LYMPHOCYTES # (AUTO) 2.3 X10'3 (1.1-4.8); MEAN CORPUSCULAR HEMOGLOBIN 20.1 PG (27.0-31.0); NEUTROPHILS # (AUTO) 5.1 X10'3 (1.8-7.7); NEUTROPHILS % (AUTO) 58.9 % (42-75); PRE OP HEMATOCRIT 28.9 % (35.0-45.0); RED BLOOD COUNT 4.32 X10'6 (4.20-5.60); RED CELL DISTRIBUTION WIDTH 23.8 % (11.5-14.5)
[2020-08-08 12:58] LABS: PRE OP HEMOGLOBIN 8.7 g/dL (12.0-16.0); PRE OP PLATELET COUNT 1032 X10'3 (140-440)
[2020-08-08 13:04] LABS: ALBUMIN/GLOBULIN RATIO 0.7 (1.1-1.5); ALKALINE PHOSPHATASE 83 IU/L (46-116); BLOOD UREA NITROGEN 15 MG/DL (7-18); CALCIUM 8.8 MG/DL (8.5-10.1); CHLORIDE 105 MMOL/L (99-107); CREATININE 0.79 MG/DL (0.40-0.90); PRE OP ALT 18 U/L (30-65); PRE OP ANION GAP 8 (8-16); PRE OP AST 13 U/L (10-37); PRE OP BILIRUB, TOTAL 0.2 MG/DL (0.0-1.0); PRE OP GLUCOSE 115 MG/DL (70-104); PRE OP SODIUM 140 MMOL/L (135-145); TOTAL CARBON DIOXIDE 26.6 MMOL/L (24-32); TOTAL PROTEIN 7.6 G/DL (6.4-8.2); eGFR 80 ML/MIN
[2020-08-08 13:08] LABS: PRE OP POTASSIUM 3.3 MMOL/L (3.4-5.1)
[2020-08-08 14:06] LABS: ANISOCYTOSIS 3+; ELLIPTOCYTES FEW; HYPOCHROMASIA 1+; MICROCYTOSIS 2+; PLATELET ESTIMATE INCREASED; POLYCHROMASIA FEW; SCHISTOCYTES FEW
[2020-08-08] MEDS ORDERED: SENN-263 PO (16:14)
[2020-08-08] MEDS ORDERED: HYDR-3972 PO (16:23)
== END 2020-08-08 23:59 | disposition home or self-care (01) ==
LOC: WOUND CARE 11:34 → EDSTATUS 12:00 → WOUND CARE 23:59
PROVIDERS: ATTEND Nurse Practitioner
DX: T81.89XD Other complications of procedures, not elsewhere classified, subsequent encounter (principal); L98.492 Non-pressure chronic ulcer of skin of other sites with fat layer exposed; S31.109D Unspecified open wound of abdominal wall, unspecified quadrant without penetration into peritoneal cavity, subsequent encounter; J45.909 Unspecified asthma, uncomplicated; E66.9 Obesity, unspecified; D64.9 Anemia, unspecified; D25.9 Leiomyoma of uterus, unspecified; N92.0 Excessive and frequent menstruation with regular cycle; F17.200 Nicotine dependence, unspecified, uncomplicated; Z85.038 Personal history of other malignant neoplasm of large intestine; Z90.49 Acquired absence of other specified parts of digestive tract; Z68.34 Body mass index [BMI] 34.0-34.9, adult; Z85.048 Personal history of other malignant neoplasm of rectum, rectosigmoid junction, and anus; Y83.8 Other surgical procedures as the cause of abnormal reaction of the patient, or of later complication, without mention of misadventure at the time of the procedure; X58.XXXD Exposure to other specified factors, subsequent encounter
CPT/HCPCS: 36415; 80053; 85008; 85025; 87635; 93005; G0463

== ENCOUNTER 2020-08-09 12:23 | Inpatient (IN) | payer MEDICAID ==
[2020-08-09] VITALS (16 sets, daily range): BP systolic 91–127; BP diastolic 54–84
[~2020-08-09] VITALS: Ht 162.6 cm; Wt 85.6 kg
[~2020-08-09 12:23] MED LIST changes: -CEFP100T7 PO; -DIPH25TA62 PO; +HYDR-3972 PO; +SENN-263 PO; -SULF1TAB49 PO; +albuterol 2.5 MG/3 ML nebule NEB ONE; +ceFAZolin 2gm in dextrose, iso 50 ML IV ONE; +famotidine 20mg tablet PO ONE; +ringers solution, lacted 1,000 ML IV SCH
[2020-08-09] MEDS ORDERED: albuterol 2.5 MG/3 ML nebule NEB ONE (12:25)
[2020-08-09] MEDS ORDERED: ceFAZolin 2gm in dextrose, iso 50 ML IV ONE (12:40)
[2020-08-09] MEDS ORDERED: famotidine 20mg tablet PO ONE (12:45)
[2020-08-09 13:50] LABS: NEUTROPHILS # (AUTO) 3.9 X10'3 (1.8-7.7); NEUTROPHILS % (AUTO) 49.4 % (42-75)
[2020-08-09 13:51] LABS: BASOPHILS # (AUTO) 0.1 X10'3 (0-0.2); BASOPHILS % (AUTO) 1.5 % (0-1); EOSINOPHILS # (AUTO) 0.6 X10'3 (0-0.9); EOSINOPHILS % (AUTO) 7.9 % (0-6); LYMPHOCYTES # (AUTO) 2.4 X10'3 (1.1-4.8); LYMPHOCYTES % (AUTO) 30.7 % (21-51); MEAN CORPUSCULAR HEMOGLOBIN 19.9 PG (27.0-31.0); MEAN CORPUSCULAR HGB CONC 29.9 g/dL (33.0-36.5); MEAN CORPUSCULAR VOLUME 66.5 FL (78-98); MONOCYTES # (AUTO) 0.8 X10'3 (0-0.9); MONOCYTES % (AUTO) 10.5 % (2-12); PRE OP HEMATOCRIT 27.6 % (35.0-45.0); PRE OP PLATELET COUNT 957 X10'3 (140-440); RED BLOOD COUNT 4.15 X10'6 (4.20-5.60); RED CELL DISTRIBUTION WIDTH 24.2 % (11.5-14.5)
[2020-08-09 13:54] LABS: PRE OP HEMOGLOBIN 8.3 g/dL (12.0-16.0)
[2020-08-09 14:01] LABS: PRE OP PARTIAL THROMB. TIME 26 SECONDS (22-32)
[2020-08-09 14:04] LABS: ALBUMIN/GLOBULIN RATIO 0.6 (1.1-1.5); ALKALINE PHOSPHATASE 81 IU/L (46-116); BLOOD UREA NITROGEN 17 MG/DL (7-18); BUN/CREATININE RATIO 23.9 (6.6-38.0); CALCIUM 8.8 MG/DL (8.5-10.1); CHLORIDE 106 MMOL/L (99-107); CREATININE 0.71 MG/DL (0.40-0.90); PRE OP ALT 25 U/L (30-65); PRE OP ANION GAP 10 (8-16); PRE OP AST 15 U/L (10-37); PRE OP BILIRUB, TOTAL 0.3 MG/DL (0.0-1.0); PRE OP GLUCOSE 86 MG/DL (70-104); PRE OP POTASSIUM 3.6 MMOL/L (3.4-5.1); PRE OP SODIUM 141 MMOL/L (135-145); TOTAL CARBON DIOXIDE 24.9 MMOL/L (24-32); TOTAL PROTEIN 7.7 G/DL (6.4-8.2); eGFR 90 ML/MIN
[2020-08-09 14:10] LABS: HCG SERUM QL NEGATIVE
[2020-08-09 15:10] LABS: ANISOCYTOSIS 3+; ELLIPTOCYTES FEW; HYPOCHROMASIA 1+; MICROCYTOSIS 2+; PLATELET ESTIMATE INCREASED; SCHISTOCYTES FEW
[2020-08-09 15:29] LABS: CLARITY,URINE CLOUDY (Clear); COLOR,URINE YELLOW (Yellow); GLUCOSE, URINE NEGATIVE (Neg); KETONES,URINE NEGATIVE (Neg); LEUKOCYTE ESTERASE ,URINE MODERATE (Neg); NITRITES, URINE NEGATIVE (Neg); OCCULT BLOOD,URINE LARGE (Neg); PROTEIN,URINE 100 mg/dl (Neg); UROBILINOGEN,URINE 0.2 E.U/dL (0.2-1.0)
[2020-08-09] MEDS ORDERED: ondansetron/PF 4mg/2ml inj ONE (15:37)
[2020-08-09] MEDS ORDERED: sevoflurane 250ml liquid IH ONE (15:37)
[2020-08-09] MEDS ORDERED: MIDAZolam 5mg/5ml vial ONE (15:41)
[2020-08-09] MEDS ORDERED: fentaNYL /PF 50mcg/ml 5ml ampule ONE (15:44)
[2020-08-09 15:50] LABS: UA COLLECTION TYPE NON-SPECIFIED
[2020-08-09 16:11] LABS: BACTERIA,URINE 1+ /HPF (Neg); RBC,URINE TNTC /HPF (0-2); SQUAMOUS EPITHELIAL CELL,UR MANY /LPF (FEW); WBC,URINE 50-100 /HPF (0-4)
[2020-08-09 16:13] LABS: YEAST MANY /HPF (NEGATIVE)
[2020-08-09 16:15] LABS: MUCUS STRANDS MODERATE /LPF (Neg)
[2020-08-09] MEDS ORDERED: propofol inj 20 ML IV ONE (16:44)
[2020-08-09] MEDS ORDERED: rocuronium 10mg/ml inj IV ONE (16:44)
[2020-08-09] MEDS ORDERED: dexamethasone sod phosphate 4mg/ml inj. ONE (16:44)
[2020-08-09] MEDS ORDERED: glycopyrrolate 0.2mg/ml inj ONE (16:46)
[2020-08-09] MEDS ORDERED: neostigmine methylsulfate 1 MG/ML 10ml vial ONE (16:46)
[2020-08-09] MEDS ORDERED: meperidine/PF 25mg/ml syringe IV PRN ×3 (17:15)
[2020-08-09] MEDS ORDERED: morphine 2 MG/ML inj. syringe IV PRN (17:15)
[2020-08-09] MEDS ORDERED: ondansetron/PF 4mg/2ml inj IV PRN ×2 (17:15→20:30)
[2020-08-09] MEDS ORDERED: ringers solution, lacted 1,000 ML IV SCH (17:15)
[2020-08-09] MEDS ORDERED: proCHLORperazine 10 MG/2 ml inj IV PRN (17:15)
[2020-08-09] MEDS ORDERED: morphine 4 MG/ML inj SYRINge IV PRN (17:15)
--- NOTE | 2020-08-09 17:18 | NUR ---
Received from OR via hospital bed, accompanied by Anesthesiologist Dr. Medina and report given by Anesthesiolgist. 20g in left forearm. abdominal binder in place with wound vac producing sanginous drainage in small amount running at 150mmhg continuous. Patient denies pain. MAE. WARE. oxygen 10L mask.Will continue to monitor. Addendum: 08/09/20 at 1729 by Karuna Nunez RN Amended: Links added.
--- NOTE | 2020-08-09 18:21 | NUR ---
Report given to Kori. Patient to go to room 341. VSS denies pain. wound vac draining scant amount of sanginous drainage. running at 150mmhg cont. A&O. swallowing water without difficulty. afebrile. RA.
--- NOTE | 2020-08-09 18:55 | NUR ---
I have received report from Karuna GONZALES and had the opportunity to ask questions and assume patient care. Call light in reach. no signs of distress
[2020-08-09] MEDS ORDERED: naloxone 0.4 mg/ml inj IV PRN (20:30)
[2020-08-09] MEDS ORDERED: CADD PCA waste documentation MC PRN (20:30)
[2020-08-09] MEDS: HYDROmorphone/NS 1 mg/ml CADD 50 ML IV SCH ×3 (21:30→23:00)
[2020-08-09] MEDS: ringers solution, lacted 1,000 ML IV SCH (21:51)
[2020-08-10] VITALS: BP 107/64
[2020-08-10] MEDS: HYDROmorphone/NS 1 mg/ml CADD 50 ML IV SCH ×12 (01:00→23:00)
[2020-08-10 03:53] VITALS: BP 104/67
[2020-08-10] MEDS: ringers solution, lacted 1,000 ML IV SCH ×2 (05:42→16:38)
--- NOTE | 2020-08-10 06:24 | NUR ---
Patient in room [facility] 341. I have received report from bessie guerrero and had the opportunity to ask questions and assume patient care.
--- NOTE | 2020-08-10 06:37 | NUR ---
Problems reprioritized. Patient report given, questions answered & plan of care reviewed with Sosa GONZALES.
[2020-08-10] MEDS ORDERED: albuterol 2.5 MG/3 ML nebule NEB PRN (09:35)
[2020-08-10] MEDS ORDERED: oxyCODONE/APAP 10/325mg tablet PO PRN (09:35)
[2020-08-10] MEDS ORDERED: sennosides 8.6mg tablet PO PRN (09:35)
--- NOTE | 2020-08-10 10:13 | NUR ---
Dr Florian rounded and discussed w/ pt to dc'g home 08/11 w/ WV. Pt agreed w/ POC, and Sosa, RN & CM, Bethany, are aware.
--- NOTE | 2020-08-10 11:00 | NUR ---
patient appeared tearful this am. stated that she just felt overwhelmed. Time spent with patient . patient stated she felt better as shift progressed. Seen by DR Addison. . Thea medina in place with effective pain management.
--- NOTE | 2020-08-10 16:00 | NUR ---
Problems reprioritized. Patient report given, questions answered & plan of care reviewed with bessie guerrero.
--- NOTE | 2020-08-10 16:17 | NUR ---
Problems reprioritized. Patient report given, questions answered & plan of care reviewed with bessie GONZALES.
--- NOTE | 2020-08-10 17:55 | NUR ---
Patient in room [facility] 341. I have received report from Sosa GONZALES and had the opportunity to ask questions and assume patient care.
[2020-08-10] MEDS: docusate sod 100mg capsule PO SCH (19:28)
[2020-08-10 20:00] VITALS: BP 125/83
[2020-08-10] MEDS: budesonide 0.5mg/2ml UD nebule IH SCH (20:00)
--- NOTE | 2020-08-10 20:50 | NUR ---
pt was found to be COVID +. pt put on airborne precautions. Dr. Florian was called and notified. stated he will talk to pt tomorrow.
[2020-08-10] MEDS ORDERED: HYDROcodone/acetaminophen 10/325mg tab PO SCH (21:00)
[2020-08-11] VITALS: BP 105/62
[2020-08-11] MEDS: HYDROmorphone/NS 1 mg/ml CADD 50 ML IV SCH ×9 (01:00→16:33)
[2020-08-11] MEDS: ringers solution, lacted 1,000 ML IV SCH ×2 (01:06→11:55)
--- NOTE | 2020-08-11 01:47 | NUR ---
I was assessing pts wound vac and saw a small amount of blood on pts abdominal binder. I took pts abdominal binder off and saw a small area where tegaderm was needed for seal. tegaderm was placed. wound vac never alarmed or stated there was a leak. wound vac was still suctioning, fluid is moving through the tube. charge nurse aware. will continue to monitor.
--- NOTE | 2020-08-11 06:31 | NUR ---
Problems reprioritized. Patient report given, questions answered & plan of care reviewed with Ramona GONZALES.
[2020-08-11 07:30] VITALS: BP 122/74
[2020-08-11] MEDS: budesonide 0.5mg/2ml UD nebule IH SCH ×2 (08:00→20:00)
[2020-08-11] MEDS: docusate sod 100mg capsule PO SCH ×2 (08:41→22:28)
--- NOTE | 2020-08-11 11:57 | NUR ---
Page sent to Respiratory therapy..... Jamie Baron 341: patient is requesting AM respiratory treatment. thanks!
[2020-08-11 12:17] VITALS: BP 131/76
--- NOTE | 2020-08-11 14:17 | NUR ---
Dr Florian had me call Marilynn at his office to call in a script for patient to [facility] [address] Percocet for 2 week supply for discharge. Leslie GONZALES aware
--- NOTE | 2020-08-11 15:20 | NUR ---
LINKED MED NOTE: PULMICORT NEBULE IH BID NOT GIVEN AT 0800 THIS AM BECAUSE PER RESPIRATORY THERAPY IT IS NOT APPROPRIATE FOR COVID + PATIENT.
[2020-08-11 18:00] VITALS: BP 127/73
--- NOTE | 2020-08-11 18:21 | NUR ---
Problems reprioritized. Patient report given, questions answered & plan of care reviewed with CHRISTIAN CHRISTIANSON.
[2020-08-11] MEDS: oxyCODONE/APAP 10/325mg tablet PO PRN ×2 (18:24→22:28)
[2020-08-11 23:56] VITALS: BP 110/65
[2020-08-12] MEDS: oxyCODONE/APAP 10/325mg tablet PO PRN ×4 (03:01→21:56)
--- NOTE | 2020-08-12 06:49 | NUR ---
Patient in room [facility] 341. I have received report from Davi GONZALES and had the opportunity to ask questions and assume patient care.
[2020-08-12] MEDS: docusate sod 100mg capsule PO SCH ×2 (07:23→19:39)
[2020-08-12 07:26] VITALS: BP 106/70
--- NOTE | 2020-08-12 10:07 | NUR ---
I called Fadia at [facility], spoke to Sanna regarding discrepancy reported to me that's why prescription cannot filled in. She said that the prescription was about Percocet, quantity ordered was 112 which is beyond what it allowed them to fill. She said to me that it was sent to the patient's insurance and its pending at this time. She said theres nothing we can do about it at this time and that we need to wait.
--- NOTE | 2020-08-12 11:17 | NUR ---
Dr. Aleman came to see patient/ He is aware of the issue with the prescribed Percocet. Dr. Aleman ordered to cancel the prescription for Percocet sent to [facility] pharmacy. Dr. Aleman wrote a written prescription for Percocet with just quantity of 12. I called [facility] pharmacy [facility], I spoke to Sanna and requested to cancel the pending Percocet order as patient will have written Percocet order to take with her upon discharge with a low quantity.
[2020-08-12 11:48] VITALS: BP 110/76
--- NOTE | 2020-08-12 11:49 | NUR ---
Charge nurse Jennifer said she will contact Dr. Addison about patient wound vac to see if we can switch it to wet to dry dressing. Patient was telling Jennifer that she had wound vac before and had experience with wet to dry dressing. Patient also stated that she has associate program manager at home that will be willing and able to care for her and do the dressing change. Patient expressed concern about going to wound care clinic because she is positive for Covid and that she just got tested positive like Friday or Friday. Charge nurse Jennifer notified me that comp field case manager won't be able to get home health service for this patient due to her home location.
--- NOTE | 2020-08-12 13:23 | NUR ---
I was about to do wet to dry dressing on patient's abdominal wound when patient suddenly talking to her family on the phone about her discharge order for today. The call is on speaker phone, I could hear the family in the background (i.e., a man and a woman talking to patient possibly her parents). I could hear the family telling her not to go home as they are very concern about her going home with the wound that needs care and they are telling her that "youre situation now is different as you have covid now!"The family repeatedly telling patient to not let her be discharge today. They kept telling patient "you are not going anywhere!". Patient was crying while talking on the phone, she was telling her family that she does not feel confident about going home managing her wound. Patient kept telling the family "I had told them that I have a caregiver that can help me but she is not a nurse!" Patient continue crying while talking to the family. I did not removed the wound vac dressing and resumed the wound vac. Patient wanted to talk to the charge nurse Jennifer Rodriguez currently at lunch. Patient agreed that I leave the room so she can talk to her family privately on the phone. During conversation of patient with her family on the phone, they ask me what is the plan, I said the patient will have to follow up with Dr. Addison office to find out when is the best time for her to see the doctor because patient will be in quarantine when she goes home. The family was not happy about this and insisted to patient not to go home and that patient should stay in the hospital. Addendum: 08/12/20 at 1425 by Afshin Gonzalez RN Per patient, the lady that she was talking to was her auntie, who is a nurse and the mo was her father. Charge nurse Jennifer had attempted to contact Dr. Aleman about patient's concern.
--- NOTE | 2020-08-12 13:46 | NUR ---
Stanley, charge nurse talking to the patient on the phone at the moment
--- NOTE | 2020-08-12 14:45 | NUR ---
Spoke with Dr Aleman re patients protest to discharging home today with wet to dry drgs, issues with covid and unpredictable help with wound care. Will cancel discharge for now.
--- NOTE | 2020-08-12 17:12 | NUR ---
Patient was advised to turn herself every 2 hours to prevent further skin breakdown as she already have pressure ulcer and patient has ability to turn herself. Patient verbalized understanding of instruction given. Addendum: 08/12/20 at 1714 by Afshin Gonzalez RN Clarification: charted in the wrong patient chart. Please disregard the above note
--- NOTE | 2020-08-12 18:20 | NUR ---
Problems reprioritized. Patient report given, questions answered & plan of care reviewed with Davi GONZALES.
--- NOTE | 2020-08-12 19:01 | NUR ---
Patient in room [facility] 341. I have received report from CHRISTIAN Pepe and had the opportunity to ask questions and assume patient care.
[2020-08-12] MEDS: budesonide 0.5mg/2ml UD nebule IH SCH (20:00)
[2020-08-12 22:00] VITALS: BP 124/92
--- NOTE | 2020-08-12 22:20 | NUR ---
Transferred patient, and belongings to the COVID unit. Report was given prior to transport
[2020-08-13] MEDS: oxyCODONE/APAP 10/325mg tablet PO PRN ×4 (02:11→18:36)
[2020-08-13 06:00] VITALS: BP 135/84
--- NOTE | 2020-08-13 06:05 | NUR ---
received report from yolanda estrada
--- NOTE | 2020-08-13 06:33 | NUR ---
Problems reprioritized. Patient report given, questions answered & plan of care reviewed with CHRISTIAN Pitt.
[2020-08-13] MEDS: docusate sod 100mg capsule PO SCH ×2 (07:23→20:00)
[2020-08-13] MEDS: budesonide 0.5mg/2ml UD nebule IH SCH ×2 (07:43→08:00)
[2020-08-13 10:00] VITALS: BP 109/64
--- NOTE | 2020-08-13 10:41 | NUR ---
SOLANGE FROM [facility] SAID THAT PT HAS TO SEE WOUND CARE OUTPT, AND WOUND CARE WILL NOT SEE PT TIL PT IS NEG FOR COVID
--- NOTE | 2020-08-13 12:11 | NUR ---
some reason [facility] did not save pain medication, continue to monitor
[2020-08-13 18:00] VITALS: BP 128/77
--- NOTE | 2020-08-13 18:36 | NUR ---
GAVE REPORT TO November,
[2020-08-13 22:00] VITALS: BP 141/87
[2020-08-14 06:00] VITALS: BP 95/62
--- NOTE | 2020-08-14 06:05 | NUR ---
received report from magda, rn
[2020-08-14] MEDS: budesonide 0.5mg/2ml UD nebule IH SCH ×3 (06:22→20:00)
[2020-08-14] MEDS: oxyCODONE/APAP 10/325mg tablet PO PRN ×4 (07:04→21:46)
[2020-08-14] MEDS: docusate sod 100mg capsule PO SCH ×2 (07:04→19:34)
[2020-08-14 08:15] LABS: EOSINOPHILS # (AUTO) 1.3 X10'3 (0-0.9); HEMOGLOBIN 8.3 g/dl (12.0-16.0)
[2020-08-14 08:17] LABS: BASOPHILS # (AUTO) 0.2 X10'3 (0-0.2); BASOPHILS % (AUTO) 1.6 % (0-1); EOSINOPHILS % (AUTO) 13.2 % (0-6); HEMATOCRIT 26.4 % (35.0-45.0); LYMPHOCYTES # (AUTO) 2.5 X10'3 (1.1-4.8); LYMPHOCYTES % (AUTO) 25.9 % (21-51); MEAN CORPUSCULAR HEMOGLOBIN 20.7 PG (27.0-31.0); MEAN CORPUSCULAR HGB CONC 31.5 g/dL (33.0-36.5); MEAN CORPUSCULAR VOLUME 65.9 FL (78-98); MEAN PLATELET VOLUME 5.9 FL (7.4-10.4); MONOCYTES # (AUTO) 0.7 X10'3 (0-0.9); MONOCYTES % (AUTO) 7.7 % (2-12); NEUTROPHILS # (AUTO) 4.9 X10'3 (1.8-7.7); NEUTROPHILS % (AUTO) 51.6 % (42-75); PLATELET COUNT 842 X10'3 (140-440); RED CELL DISTRIBUTION WIDTH 22.4 % (11.5-14.5); WHITE BLOOD COUNT 9.6 X10'3 (4.5-11.0)
[2020-08-14 10:00] VITALS: BP 118/69
[2020-08-14 10:33] LABS: ANISOCYTOSIS 3+; PLATELET ESTIMATE INCREASED
[2020-08-14 10:34] LABS: ELLIPTOCYTES 1+; MICROCYTOSIS 2+; TARGET CELLS 1+
--- NOTE | 2020-08-14 13:18 | NUR ---
spoke w/dr huff about pt refusing to leave hospital, pt tells me that she has a caregiver and that she does not want to put that caregiver in a tough situation when pt is supposed to be on quarantine, also pt herself tells me the she is unable to preform the dressing changes on her own as well as the fact that the outpatient wound care clinic will not see her til her quarantine is over therefore pt is refusing her d/c dr huff is aware and said that she should be able to leave sometime this coming weekend
[2020-08-14 18:00] VITALS: BP 119/81
--- NOTE | 2020-08-14 18:10 | NUR ---
since pt took off her high flow nasal cannula pt oxgyen level has decreased, respiratory therapy requested that pt be placed on 15l non-rebreather mask, placed pt on non-rebreather mask and pt oxygen level is increasing, continue to monitor Addendum: 08/14/20 at 1813 by Lani Shelton RN above statement does not apply to this pt, this pt is on room air
--- NOTE | 2020-08-14 18:19 | NUR ---
gave report to yolanda salazar
[2020-08-14 22:00] VITALS: BP 130/72
[2020-08-15] MEDS: oxyCODONE/APAP 10/325mg tablet PO PRN ×5 (01:49→21:51)
[2020-08-15 06:00] VITALS: BP 116/67
--- NOTE | 2020-08-15 06:18 | NUR ---
REPORT GIVEN TO BRIDGETTE GONZALES
--- NOTE | 2020-08-15 06:37 | NUR ---
Patient in room [facility] 4007. I have received report from CHRISTIAN LOW and had the opportunity to ask questions and assume patient care.
[2020-08-15] MEDS: docusate sod 100mg capsule PO SCH ×2 (07:57→19:47)
[2020-08-15] MEDS: budesonide 0.5mg/2ml UD nebule IH SCH ×2 (08:00→20:00)
[2020-08-15 10:00] VITALS: BP 120/67
[2020-08-15] MEDS: lactose-reduced food (Ensure Enlive) - 237ml bottle PO SCH (12:30)
--- NOTE | 2020-08-15 12:30 | NUR ---
Initial: Pt admit w/ infected abdominal surgical site s/p prior mesh removal this admit. DX COVID-19 as well. 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 Advanced to regular diet post-op PO ~50-75% avg meals decent; RD recommends jagjit shakes BIDBD and ensure enlive WL given wound healing/protein needs post-op. MD notified. LBM 08/14 w/ abdominal pain post-op and hx chronic pain. No new labs at this time. Will continue to monitor for additional protein needs. Rec: 1. continue regular diet 2. jagjit shakes BIDBD; ensure enlive WL 3. routine bowel care 4. wt per rx Addendum: 08/15/20 at [address] Amended: Links added.
[2020-08-15] MEDS: JUVEN Shake w/Arg/Glut/Ca2+Bmb (Juven 19.3gm) pkt 240ml PO SCH (17:30)
[2020-08-15 18:00] VITALS: BP 139/77
--- NOTE | 2020-08-15 18:00 | NUR ---
RECEIVED REPORT FROM BRIDGETTE GONZALES AND ASSUMED PATIENT CARE
--- NOTE | 2020-08-15 18:28 | NUR ---
Problems reprioritized. Patient report given, questions answered & plan of care reviewed with CHRISTIAN LOW.
[2020-08-15 22:00] VITALS: BP 130/57
[2020-08-16 06:00] VITALS: BP 125/81
--- NOTE | 2020-08-16 06:17 | NUR ---
Patient in room [facility] 4007. I have received report from CHRISTIAN LOW and had the opportunity to ask questions and assume patient care.
--- NOTE | 2020-08-16 06:18 | NUR ---
REPORT GIVE TO BRIDGETTE GONZALES
[2020-08-16] MEDS: JUVEN Shake w/Arg/Glut/Ca2+Bmb (Juven 19.3gm) pkt 240ml PO SCH ×2 (07:30→17:45)
[2020-08-16] MEDS: budesonide 0.5mg/2ml UD nebule IH SCH ×2 (08:00→20:00)
[2020-08-16] MEDS: docusate sod 100mg capsule PO SCH ×2 (08:23→19:23)
[2020-08-16] MEDS: oxyCODONE/APAP 10/325mg tablet PO PRN ×3 (08:23→19:22)
[2020-08-16 09:47] LABS: BASOPHILS # (AUTO) 0.1 X10'3 (0-0.2); HEMOGLOBIN 7.9 g/dl (12.0-16.0); MEAN PLATELET VOLUME 5.9 FL (7.4-10.4)
[2020-08-16 09:48] LABS: BASOPHILS % (AUTO) 0.5 % (0-1); EOSINOPHILS # (AUTO) 0.9 X10'3 (0-0.9); EOSINOPHILS % (AUTO) 7.2 % (0-6); HEMATOCRIT 25.6 % (35.0-45.0); LYMPHOCYTES # (AUTO) 1.7 X10'3 (1.1-4.8); LYMPHOCYTES % (AUTO) 14.3 % (21-51); MEAN CORPUSCULAR HEMOGLOBIN 20.2 PG (27.0-31.0); MEAN CORPUSCULAR HGB CONC 30.9 g/dL (33.0-36.5); MEAN CORPUSCULAR VOLUME 65.2 FL (78-98); MONOCYTES # (AUTO) 0.8 X10'3 (0-0.9); MONOCYTES % (AUTO) 6.6 % (2-12); NEUTROPHILS # (AUTO) 8.6 X10'3 (1.8-7.7); NEUTROPHILS % (AUTO) 71.4 % (42-75); PLATELET COUNT 790 X10'3 (140-440); RED BLOOD COUNT 3.93 X10'6 (4.20-5.60); RED CELL DISTRIBUTION WIDTH 21.9 % (11.5-14.5)
[2020-08-16 10:00] VITALS: BP 132/84
[2020-08-16 10:03] LABS: ALANINE AMINOTRANSFERASE 17 U/L (12-78); ALBUMIN 2.5 G/DL (3.4-5.0); ALBUMIN/GLOBULIN RATIO 0.6 (1.1-1.5); ALKALINE PHOSPHATASE 69 IU/L (46-116); ANION GAP 8 (8-16); ASPARTATE AMINO TRANSFERASE 9 U/L (10-37); BILIRUBIN,TOTAL 0.2 MG/DL (0.1-1.0); BLOOD UREA NITROGEN 9 MG/DL (7-18); BUN/CREATININE RATIO 12.9 (6.6-38.0); CALCIUM 8.5 MG/DL (8.5-10.1); CHLORIDE 103 MMOL/L (99-107); GLUCOSE 143 MG/DL (70-104); POTASSIUM 3.2 MMOL/L (3.5-5.1); SODIUM 137 MMOL/L (135-145); TOTAL PROTEIN 6.9 G/DL (6.4-8.2); eGFR > 90 ML/MIN
--- NOTE | 2020-08-16 10:16 | NUR ---
Page Sent PAGER ID: [phone] MESSAGE: BRIDGETTE [id number]: [id number] TAMIKO MCKEON...PTS K+ 3.2, NO REPLACEMENT PROTOCOL ORDERED. CAN I GET REPLACEMENT ORDERS? THANK YOU :)
--- NOTE | 2020-08-16 10:19 | NUR ---
PHONE CALL FROM DR BRISENO, ADD MAG AND K+ REPLACEMENT PROTOCOL.
[2020-08-16] MEDS ORDERED: potassium Cl 20 mEq SR tablet PO PRN (10:20)
[2020-08-16] MEDS ORDERED: magnesium Cl slow-release 64mg tablet PO PRN (10:20)
[2020-08-16] MEDS ORDERED: magnesium 4gm in 100ml NS 100 ML IV PRN (10:20)
[2020-08-16] MEDS ORDERED: potassium Cl 40MEQ/1/2NS 520ml 520 ML IV PRN (10:20)
[2020-08-16 11:56] LABS: MAGNESIUM 1.8 MG/DL (1.5-2.4)
[2020-08-16] MEDS: lactose-reduced food (Ensure Enlive) - 237ml bottle PO SCH (12:31)
[2020-08-16] MEDS: potassium Cl 20 mEq SR tablet PO PRN ×2 (12:34→16:59)
[2020-08-16 13:11] LABS: PLATELET ESTIMATE INCREASED; TOTAL CELLS COUNTED 100
[2020-08-16 13:16] LABS: ANISOCYTOSIS 3+; ELLIPTOCYTES 1+; HYPOCHROMASIA 2+; MICROCYTOSIS 2+
[2020-08-16 13:21] LABS: TOXIC GRANULATION 1+
[2020-08-16 18:00] VITALS: BP 121/71
--- NOTE | 2020-08-16 18:17 | NUR ---
Problems reprioritized. Patient report given, questions answered & plan of care reviewed with CHRISTIAN MCQUEEN.
[2020-08-16] MEDS: K and/or MAG REPLACEMENT MC SCH (20:00)
[2020-08-16 22:00] VITALS: BP 137/98
[2020-08-17] MEDS: oxyCODONE/APAP 10/325mg tablet PO PRN (00:04)
[2020-08-17] MEDS: potassium Cl 20 mEq SR tablet PO PRN ×2 (00:04→14:19)
[2020-08-17] MEDS: HYDROcodone/acetaminophen 10/325mg tab PO PRN ×4 (05:51→19:07)
[2020-08-17 06:00] VITALS: BP 111/65
[2020-08-17] MEDS: JUVEN Shake w/Arg/Glut/Ca2+Bmb (Juven 19.3gm) pkt 240ml PO SCH ×2 (07:30→17:30)
[2020-08-17] MEDS: docusate sod 100mg capsule PO SCH ×2 (08:00→19:07)
[2020-08-17] MEDS: budesonide 0.5mg/2ml UD nebule IH SCH ×2 (08:00→14:01)
[2020-08-17 08:12] LABS: MAGNESIUM 1.8 MG/DL (1.5-2.4); POTASSIUM 3.7 MMOL/L (3.5-5.1)
[2020-08-17 09:52] LABS: EOSINOPHILS # (AUTO) 0.6 X10'3 (0-0.9); HEMOGLOBIN 7.3 g/dl (12.0-16.0); LYMPHOCYTES # (AUTO) 1.9 X10'3 (1.1-4.8); LYMPHOCYTES % (AUTO) 16.1 % (21-51)
[2020-08-17 09:53] LABS: BASOPHILS # (AUTO) 0.1 X10'3 (0-0.2); BASOPHILS % (AUTO) 0.4 % (0-1); EOSINOPHILS % (AUTO) 5.6 % (0-6); HEMATOCRIT 24.5 % (35.0-45.0); MEAN CORPUSCULAR HEMOGLOBIN 19.4 PG (27.0-31.0); MEAN CORPUSCULAR HGB CONC 29.9 g/dL (33.0-36.5); MEAN CORPUSCULAR VOLUME 64.9 FL (78-98); MEAN PLATELET VOLUME 6.1 FL (7.4-10.4); MONOCYTES % (AUTO) 8.3 % (2-12); NEUTROPHILS % (AUTO) 69.6 % (42-75); PLATELET COUNT 770 X10'3 (140-440); RED BLOOD COUNT 3.77 X10'6 (4.20-5.60); RED CELL DISTRIBUTION WIDTH 21.8 % (11.5-14.5); WHITE BLOOD COUNT 11.6 X10'3 (4.5-11.0)
[2020-08-17 09:54] LABS: ALANINE AMINOTRANSFERASE 15 U/L (12-78); ALBUMIN 2.4 G/DL (3.4-5.0); ALBUMIN/GLOBULIN RATIO 0.5 (1.1-1.5); ALKALINE PHOSPHATASE 69 IU/L (46-116); ANION GAP 6 (8-16); ASPARTATE AMINO TRANSFERASE 10 U/L (10-37); BILIRUBIN,TOTAL 0.2 MG/DL (0.1-1.0); BLOOD UREA NITROGEN 9 MG/DL (7-18); BUN/CREATININE RATIO 12.5 (6.6-38.0); CALCIUM 8.4 MG/DL (8.5-10.1); CHLORIDE 104 MMOL/L (99-107); CREATININE 0.72 MG/DL (0.40-0.90); GLUCOSE 114 MG/DL (70-104); POTASSIUM 3.4 MMOL/L (3.5-5.1); SODIUM 137 MMOL/L (135-145); TOTAL PROTEIN 6.8 G/DL (6.4-8.2); eGFR 88 ML/MIN
[2020-08-17 10:00] VITALS: BP 112/68
[2020-08-17 10:50] LABS: ANISOCYTOSIS 3+; HYPOCHROMASIA 2+; MICROCYTOSIS 2+; PLATELET ESTIMATE INCREASED
[2020-08-17 10:51] LABS: ELLIPTOCYTES FEW; SCHISTOCYTES FEW
[2020-08-17] MEDS: lactose-reduced food (Ensure Enlive) - 237ml bottle PO SCH (13:26)
[2020-08-17] MEDS: K and/or MAG REPLACEMENT MC SCH ×2 (13:48→19:08)
--- NOTE | 2020-08-17 14:00 | NUR ---
PAGER ID: [phone] MESSAGE: [phone] [id number] Linda Pizarro- Is pt supposed to be continued on antibiotics, since she was here for removal infected tissue? temp up to 100.1 before receiving [place], and UA positive for leukocyte esterase. Please advise, thanks
[2020-08-17 14:49] LABS: CLARITY,URINE SLIGHTLY CLOUDY (Clear); COLOR,URINE YELLOW (Yellow); GLUCOSE, URINE NEGATIVE (Neg); KETONES,URINE NEGATIVE (Neg); LEUKOCYTE ESTERASE ,URINE MODERATE (Neg); NITRITES, URINE NEGATIVE (Neg); OCCULT BLOOD,URINE MODERATE (Neg); PH,URINE 6.5 (4.8-8.0); PROTEIN,URINE NEGATIVE (Neg); UROBILINOGEN,URINE 0.2 E.U/dL (0.2-1.0)
[2020-08-17 15:04] LABS: UA COLLECTION TYPE CLN CATCH MIDSTREAM
[2020-08-17 15:05] LABS: MUCUS STRANDS MANY /LPF (Neg); SQUAMOUS EPITHELIAL CELL,UR MODERATE /LPF (FEW)
[2020-08-17 15:07] LABS: YEAST MANY /HPF (NEGATIVE)
[2020-08-17 15:10] LABS: BACTERIA,URINE FEW /HPF (Neg)
[2020-08-17 15:11] LABS: WBC,URINE 30-50 /HPF (0-4)
[2020-08-17 18:00] VITALS: BP 113/69
--- NOTE | 2020-08-17 18:27 | NUR ---
Patient in room ORTH[facility] 4007. I have received report from Zoë GONZALES and had the opportunity to ask questions and assume patient care.
[2020-08-17] MEDS ORDERED: POTASSIUM BICARB 20meq eff tab 20 MEQ TABLET.EFF PO PRN (18:42)
[2020-08-17] MEDS: POTASSIUM BICARB 20meq eff tab 20 MEQ TABLET.EFF PO PRN ×2 (19:06→22:42)
[2020-08-17] MEDS: sulfamethoxazole/trimethoprim DS (800/160mg) tablet PO SCH (19:07)
[2020-08-17 22:00] VITALS: BP 107/69
[2020-08-18] MEDS: HYDROcodone/acetaminophen 10/325mg tab PO PRN ×3 (03:43→13:03)
--- NOTE | 2020-08-18 06:22 | NUR ---
Problems reprioritized. Patient report given, questions answered & plan of care reviewed with Zoë GONZALES. Addendum: 08/18/20 at 0623 by Debra Armstrong RN Report given to Sis GONZALES
[2020-08-18] MEDS: docusate sod 100mg capsule PO SCH (07:53)
[2020-08-18] MEDS: sulfamethoxazole/trimethoprim DS (800/160mg) tablet PO SCH (07:54)
[2020-08-18] MEDS: JUVEN Shake w/Arg/Glut/Ca2+Bmb (Juven 19.3gm) pkt 240ml PO SCH (07:59)
[2020-08-18] MEDS: K and/or MAG REPLACEMENT MC SCH (08:00)
[2020-08-18 09:31] LABS: BASOPHILS # (AUTO) 0.1 X10'3 (0-0.2); EOSINOPHILS # (AUTO) 0.5 X10'3 (0-0.9); EOSINOPHILS % (AUTO) 3.5 % (0-6); HEMOGLOBIN 7.9 g/dl (12.0-16.0)
[2020-08-18 09:32] LABS: BASOPHILS % (AUTO) 0.5 % (0-1); HEMATOCRIT 26.3 % (35.0-45.0); LYMPHOCYTES # (AUTO) 2.3 X10'3 (1.1-4.8); LYMPHOCYTES % (AUTO) 17.2 % (21-51); MEAN CORPUSCULAR HEMOGLOBIN 19.6 PG (27.0-31.0); MEAN CORPUSCULAR HGB CONC 30.1 g/dL (33.0-36.5); MONOCYTES % (AUTO) 7.5 % (2-12); NEUTROPHILS # (AUTO) 9.7 X10'3 (1.8-7.7); NEUTROPHILS % (AUTO) 71.3 % (42-75); PLATELET COUNT 867 X10'3 (140-440); RED BLOOD COUNT 4.05 X10'6 (4.20-5.60); RED CELL DISTRIBUTION WIDTH 22.1 % (11.5-14.5); WHITE BLOOD COUNT 13.5 X10'3 (4.5-11.0)
[2020-08-18 10:00] VITALS: BP 114/63
[2020-08-18 10:12] LABS: ALANINE AMINOTRANSFERASE 17 U/L (12-78); ALBUMIN 2.6 G/DL (3.4-5.0); ALBUMIN/GLOBULIN RATIO 0.5 (1.1-1.5); ALKALINE PHOSPHATASE 83 IU/L (46-116); ANION GAP 10 (8-16); ASPARTATE AMINO TRANSFERASE 11 U/L (10-37); BILIRUBIN,TOTAL 0.2 MG/DL (0.1-1.0); BLOOD UREA NITROGEN 10 MG/DL (7-18); BUN/CREATININE RATIO 11.9 (6.6-38.0); CALCIUM 8.5 MG/DL (8.5-10.1); CHLORIDE 101 MMOL/L (99-107); CREATININE 0.84 MG/DL (0.40-0.90); GLUCOSE 151 MG/DL (70-104); MAGNESIUM 1.9 MG/DL (1.5-2.4); POTASSIUM 3.5 MMOL/L (3.5-5.1); SODIUM 136 MMOL/L (135-145); TOTAL PROTEIN 7.5 G/DL (6.4-8.2); eGFR 74 ML/MIN
[2020-08-18 11:31] LABS: ANISOCYTOSIS 3+; ELLIPTOCYTES FEW; HYPOCHROMASIA 2+; MICROCYTOSIS 2+; PLATELET ESTIMATE INCREASED; SCHISTOCYTES FEW
[2020-08-18 11:32] LABS: POLYCHROMASIA FEW
[2020-08-18] MEDS ORDERED: LIDOcaine 4% (40 mg/ml) topical solution 50ml TP PRN (15:10)
[2020-08-18] MEDS: oxyCODONE/APAP 10/325mg tablet PO PRN (15:16)
[2020-08-18] MEDS ORDERED: BACDS PO (15:39)
--- NOTE | 2020-08-18 15:48 | NUR ---
Reassessment: Received TC from RN regarding patient with food preferences and disliking Huseyin shakes. Patient's PO intake down to 25-50% on regular diet not meeting estimated nutrient needs. D/w pt over TC. Pt reports she has been getting food through [employer] as she is dissatisfied with meals she has been receiving. RD assisted pt in selecting menu for dinner tonight and dietary has been notified to fax a menu to patient daily so pt will be able to fill out her menu for preferred meals. Pt agreeable with this. RD educated patient on the need for Huseyin for wound healing and offered alternative flavors, pt verbalized understanding in the importance of this supplement and requested flavor be changed to peach smoothie. Pt provided with RD contact information and encouraged to reach out for further food preferences. Pt requesting probiotic and MVI. Noted that pt just started on a probiotic and RN informed of patient's request for an MVI. RD further recommended MVI to RN with MD approval for wound healing needs. Pt endorses a good appetite and denies food allergies, difficulty chewing/swallowing, or constipation/diarrhea. LBM 08/15. Pt reports usually has a BM every other day or every two days. Pt receiving routine bowel care with PRN bowel care available. Will continue to follow. Rec: 1. continue regular diet 2. peach Huseyin smoothie BIDBD; Ensure Enlive WL 3. MVI for wound healing needs with MD approval 4. routine bowel care 5. wt per rx Addendum: 08/18/20 at [address] Amended: Links added.
[2020-08-18] MEDS ORDERED: lactobacillus rhamnosus 10,000 MMU CELLS/CAPSULE PO SCH (20:00)
== END 2020-08-18 17:01 | disposition home or self-care (01) | DRG 721 ==
LOC: PAS 12:23 → SUR 3N 16:20 → UNDOADMIN 16:20 → SUR 3N 18:57 → ORTHO 4S 08-12 21:45
PROVIDERS: ADMIT Surgery; ATTEND Surgery
PROC: 0WPFXJZ Removal of Synthetic Substitute from Abdominal Wall, External Approach (ICD-10-PCS; principal; 2020-08-09 15:37)
DX: T85.79XA Infection and inflammatory reaction due to other internal prosthetic devices, implants and grafts, initial encounter (principal); C18.9 Malignant neoplasm of colon, unspecified; G89.29 Other chronic pain; J44.9 Chronic obstructive pulmonary disease, unspecified; K59.00 Constipation, unspecified; E87.6 Hypokalemia; U07.1 COVID-19; N32.1 Vesicointestinal fistula; Z20.828 Contact with and (suspected) exposure to other viral communicable diseases; Y83.2 Surgical operation with anastomosis, bypass or graft as the cause of abnormal reaction of the patient, or of later complication, without mention of misadventure at the time of the procedure; Z90.49 Acquired absence of other specified parts of digestive tract; Z86.14 Personal history of Methicillin resistant Staphylococcus aureus infection; Z85.038 Personal history of other malignant neoplasm of large intestine; Z79.51 Long term (current) use of inhaled steroids
CPT/HCPCS: 36415; 80053; 81001; 83735; 84132; 84703; 85007; 85008; 85025; 85610; 85730; 86885; 86900; 86901; 87081; 87088; 87635; 94640; 94760; A4618; A6550; A7000; C9803; G0378; J1100; J1170; J2250; J2405; J2704; J2710; J3010; J3490; J7120; J7626

== ENCOUNTER 2020-08-22 11:12 | Outpatient (CLI) | payer MEDICAID ==
[~2020-08-22 11:12] MED LIST changes: +BACDS PO; -albuterol 2.5 MG/3 ML nebule NEB ONE; -ceFAZolin 2gm in dextrose, iso 50 ML IV ONE; -famotidine 20mg tablet PO ONE; -ringers solution, lacted 1,000 ML IV SCH
== END 2020-08-22 23:59 | disposition home or self-care (01) ==
LOC: WOUND CARE 11:12
PROVIDERS: ATTEND Surgery
DX: T81.89XD Other complications of procedures, not elsewhere classified, subsequent encounter (principal); L98.492 Non-pressure chronic ulcer of skin of other sites with fat layer exposed; S31.109D Unspecified open wound of abdominal wall, unspecified quadrant without penetration into peritoneal cavity, subsequent encounter; J45.909 Unspecified asthma, uncomplicated; E66.9 Obesity, unspecified; D64.9 Anemia, unspecified; D25.9 Leiomyoma of uterus, unspecified; N92.0 Excessive and frequent menstruation with regular cycle; L02.211 Cutaneous abscess of abdominal wall; F17.200 Nicotine dependence, unspecified, uncomplicated; Z85.038 Personal history of other malignant neoplasm of large intestine; Z90.49 Acquired absence of other specified parts of digestive tract; Z68.34 Body mass index [BMI] 34.0-34.9, adult; Z85.048 Personal history of other malignant neoplasm of rectum, rectosigmoid junction, and anus; Y83.8 Other surgical procedures as the cause of abnormal reaction of the patient, or of later complication, without mention of misadventure at the time of the procedure; X58.XXXD Exposure to other specified factors, subsequent encounter
CPT/HCPCS: G0463

== ENCOUNTER 2020-08-28 11:33 | Outpatient (CLI) | payer MEDICAID ==
[~2020-08-28 11:33] MED LIST changes: -ASPI-1264 PO
== END 2020-08-28 23:59 | disposition home or self-care (01) ==
LOC: WOUND CARE 11:33
PROVIDERS: ATTEND Nurse Practitioner Family
DX: T81.89XD Other complications of procedures, not elsewhere classified, subsequent encounter (principal); L98.492 Non-pressure chronic ulcer of skin of other sites with fat layer exposed; S31.109D Unspecified open wound of abdominal wall, unspecified quadrant without penetration into peritoneal cavity, subsequent encounter; J45.909 Unspecified asthma, uncomplicated; E66.9 Obesity, unspecified; D64.9 Anemia, unspecified; D25.9 Leiomyoma of uterus, unspecified; N92.0 Excessive and frequent menstruation with regular cycle; F17.200 Nicotine dependence, unspecified, uncomplicated; Z85.038 Personal history of other malignant neoplasm of large intestine; Z90.49 Acquired absence of other specified parts of digestive tract; Z68.34 Body mass index [BMI] 34.0-34.9, adult; Z85.048 Personal history of other malignant neoplasm of rectum, rectosigmoid junction, and anus; Y83.8 Other surgical procedures as the cause of abnormal reaction of the patient, or of later complication, without mention of misadventure at the time of the procedure; X58.XXXD Exposure to other specified factors, subsequent encounter
CPT/HCPCS: 87070; 87075; 87077; 87186; 97597; 97598

== ENCOUNTER 2020-08-29 12:14 | Outpatient (CLI) | payer MEDICAID ==
[2020-08-29] MEDS ORDERED: LIDOcaine 2% 5ml jelly ONE (14:03)
[2020-08-29] MEDS ORDERED: Dakins solution (1/4 strength) 473ml solution TP SCH (14:15)
== END 2020-08-29 23:59 | disposition home or self-care (01) ==
LOC: WOUND CARE 12:14 → EDSTATUS 12:20 → WOUND CARE 23:59
PROVIDERS: ATTEND Nurse Practitioner Family
DX: T81.89XD Other complications of procedures, not elsewhere classified, subsequent encounter (principal); L98.492 Non-pressure chronic ulcer of skin of other sites with fat layer exposed; S31.109D Unspecified open wound of abdominal wall, unspecified quadrant without penetration into peritoneal cavity, subsequent encounter; J45.909 Unspecified asthma, uncomplicated; E66.9 Obesity, unspecified; D64.9 Anemia, unspecified; D25.9 Leiomyoma of uterus, unspecified; N92.0 Excessive and frequent menstruation with regular cycle; F17.200 Nicotine dependence, unspecified, uncomplicated; Z85.038 Personal history of other malignant neoplasm of large intestine; Z90.49 Acquired absence of other specified parts of digestive tract; Z68.34 Body mass index [BMI] 34.0-34.9, adult; Z85.048 Personal history of other malignant neoplasm of rectum, rectosigmoid junction, and anus; Y83.8 Other surgical procedures as the cause of abnormal reaction of the patient, or of later complication, without mention of misadventure at the time of the procedure; X58.XXXD Exposure to other specified factors, subsequent encounter
CPT/HCPCS: G0463

== ENCOUNTER 2020-09-05 11:44 | Outpatient (CLI) | payer MEDICAID ==
[2020-09-05] MEDS ORDERED: LIDOcaine 2% 5ml jelly ONE (12:02)
== END 2020-09-05 23:59 | disposition home or self-care (01) ==
LOC: WOUND CARE 11:44
PROVIDERS: ATTEND Nurse Practitioner
DX: T81.89XD Other complications of procedures, not elsewhere classified, subsequent encounter (principal); L98.492 Non-pressure chronic ulcer of skin of other sites with fat layer exposed; S31.109D Unspecified open wound of abdominal wall, unspecified quadrant without penetration into peritoneal cavity, subsequent encounter; J45.909 Unspecified asthma, uncomplicated; E66.9 Obesity, unspecified; D64.9 Anemia, unspecified; D25.9 Leiomyoma of uterus, unspecified; N92.0 Excessive and frequent menstruation with regular cycle; F17.200 Nicotine dependence, unspecified, uncomplicated; Z85.038 Personal history of other malignant neoplasm of large intestine; Z90.49 Acquired absence of other specified parts of digestive tract; Z68.34 Body mass index [BMI] 34.0-34.9, adult; Z85.048 Personal history of other malignant neoplasm of rectum, rectosigmoid junction, and anus; X58.XXXD Exposure to other specified factors, subsequent encounter; Y83.8 Other surgical procedures as the cause of abnormal reaction of the patient, or of later complication, without mention of misadventure at the time of the procedure
CPT/HCPCS: G0463

== ENCOUNTER → 2020-10-31 | Outpatient (CLI) | payer MEDICAID ==
[~2020-10-31] MED LIST changes: -BACDS PO; +SULF1TAB45 PO
== END | disposition home or self-care (01) ==
LOC: WOUND CARE 10:44
PROVIDERS: ATTEND Nurse Practitioner
DX: S31.109D Unspecified open wound of abdominal wall, unspecified quadrant without penetration into peritoneal cavity, subsequent encounter (principal); L98.492 Non-pressure chronic ulcer of skin of other sites with fat layer exposed; J44.9 Chronic obstructive pulmonary disease, unspecified; D64.9 Anemia, unspecified; D25.9 Leiomyoma of uterus, unspecified; N92.0 Excessive and frequent menstruation with regular cycle; E66.9 Obesity, unspecified; F17.200 Nicotine dependence, unspecified, uncomplicated; Z85.038 Personal history of other malignant neoplasm of large intestine; Z90.49 Acquired absence of other specified parts of digestive tract; Z68.34 Body mass index [BMI] 34.0-34.9, adult; Z85.048 Personal history of other malignant neoplasm of rectum, rectosigmoid junction, and anus; X58.XXXD Exposure to other specified factors, subsequent encounter
CPT/HCPCS: 17250; G0463